=== PATIENT | female | born 1940 | race Caucasian/White ===

== ENCOUNTER 2016-11-26 07:52 | Day surgery (SDC) | payer MEDICARE ==
[2016-11-26] MEDS ORDERED: Lactated Ringers 1,000 ML IV SCH (08:45)
[2016-11-26] MEDS ORDERED: Lidocaine 2% 100 MG/5 ML Syringe IVPUSH ONE (09:50)
[2016-11-26] MEDS ORDERED: Propofol 200 MG/20 ML SDV IV ONE (09:50)
--- NOTE | 2016-11-26 10:05 | PCM.OPNOTE ---
- General Post-Op/Procedure Note Date of Surgery/Procedure: 11/26/16 Operative Procedure(s): egd Findings: healed antral ulcer duodenum diverticulum Pre Op Diagnosis: hx of antral ulcer Post-Op Diagnosis: healed antral ulcer duodenum diverticulum Anesthesia Technique: MAC Primary Surgeon: Kevan Dias Anesthesia Provider: Tyler Gaona Pathology: none Complications: None Condition: Good Free Text/Narrative:: see dictation
--- NOTE | 2016-11-26 10:42 | OR ---
DATE OF OPERATION: 11/26/2016 SURGEON: Kevan Dias MD PROCEDURE PERFORMED: Esophagogastroduodenoscopy. PREOPERATIVE DIAGNOSIS: Antral ulcer. POSTOPERATIVE DIAGNOSES: Healed antral ulcer as well as history of duodenal diverticulum. INDICATIONS FOR PROCEDURE: This is a 76-year-old white female, who was recently diagnosed with an antral ulcer. She has undergone treatment, feels much better. She now has an EGD. DESCRIPTION OF OPERATION: After an excellent IV sedation was administered, the bite block was inserted. The flexible endoscope was passed without difficulty down the patient's esophagus into the stomach. The stomach was insufflated. The scope was passed through the pylorus to the second portion of the duodenum and slowly withdrawn. Following findings were noted. The previously noted duodenal diverticulum was identified. Otherwise unremarkable. The stomach with no evidence of any residual ulcer noted. Esophagus essentially unremarkable. The stomach was deflated, scope was removed. The patient was taken to recovery room in good condition. /[id number] /MODL
[2016-11-26 13:34] VITALS: BP 112/60
== END 2016-11-26 11:08 | disposition home or self-care (01) ==
LOC: FB.SDS 07:52
PROVIDERS: ATTEND Surgery
DX: K25.9 Gastric ulcer, unspecified as acute or chronic, without hemorrhage or perforation (principal); I10 Essential (primary) hypertension; E78.5 Hyperlipidemia, unspecified; F32.9 Major depressive disorder, single episode, unspecified; K21.9 Gastro-esophageal reflux disease without esophagitis; Z88.0 Allergy status to penicillin; Z88.8 Allergy status to other drugs, medicaments and biological substances; Z79.899 Other long term (current) drug therapy; N17.9 Acute kidney failure, unspecified; Z90.49 Acquired absence of other specified parts of digestive tract; Z90.710 Acquired absence of both cervix and uterus; Z96.643 Presence of artificial hip joint, bilateral; Z96.651 Presence of right artificial knee joint; Z96.612 Presence of left artificial shoulder joint; Z96.611 Presence of right artificial shoulder joint; Z87.891 Personal history of nicotine dependence
CPT/HCPCS: 00740; 43235; J2704; J7120

== ENCOUNTER 2019-11-19 23:38 | Inpatient (IN) | payer MEDICARE ==
--- NOTE | 2019-11-20 00:16 | EDM.PDOC ---
ED HPI GENERAL MEDICAL PROBLEM - General Time Seen by Provider: 11/19/19 23:50 Source of Information: Reports: Patient History Limitations: Reports: Altered Mental Status - History of Present Illness INITIAL COMMENTS - FREE TEXT/NARRATIVE: c/o inc'd confusion all day reports that she "has not been right" all day, has had trouble completing her thoughts, tonight she had trouble speaking and it seemed a little worse tonight pt tried to take her evening meds twice, which is unusual pt needed help getting into her pajamas, which is unusual no n/v, no f/c/d, has not been ill otherwise dtr reports that pt and have had a cough - Related Data Allergies Allergy/AdvReac Type Severity Reaction Status Date / Time Penicillins Allergy Hives Verified 11/20/19 00:35 aspirin AdvReac Mild GI SX Verified 11/20/19 00:35 ibuprofen [From Motrin IB] AdvReac Mild GI SX Verified 11/20/19 00:35 morphine AdvReac Mild Hallucinati Verified 11/20/19 00:35 ons naproxen [From Aleve] AdvReac Mild GI SX Verified 11/20/19 00:35 Home Meds: Home Meds Ascorbate Calcium [Vitamin C] 500 mg PO DAILY PRN 08/21/16 [History] Calcium Carbonate/Vitamin D3 [Calcium 600 + Vit D 400 Softgl] 400 - 600 mg PO BID 08/21/16 [History] Cholecalciferol (Vitamin D3) [Vitamin D3] 1,000 units PO DAILY 08/21/16 [History ] Citalopram Hydrobromide [Celexa] 40 mg PO ACBREAKFAST 08/21/16 [History] Lisinopril/Hydrochlorothiazide [Zestoretic 10-12.5 mg Tablet] 10 - 12.5 mg PO DAILY 08/21/16 [History] Multivitamin with Minerals [Multiple Vitamin] 1 tab PO BID 08/21/16 [History] Tiotropium [Spiriva HandiHaler] 1 puff PO DAILY 08/21/16 [History] Vitamin E 400 unit PO BID 08/21/16 [History] rOPINIRole HCl [Requip] 0.5 mg PO BEDTIME 08/21/16 [History] traZODone 50 - 100 mg PO BEDTIME PRN 08/21/16 [History] Pantoprazole Sodium [Protonix] 40 mg PO DAILY 11/25/16 [History] Acetaminophen [Tylenol Arthritis] 650 mg PO ASDIRECTED PRN 11/26/16 [History] atorvaSTATin [Lipitor] 10 mg PO BEDTIME 11/20/19 [History] Past Medical History Cardiovascular History: Reports: High Cholesterol, Hypertension Other Cardiovascular History: RECENT EKG FOR PAIN INTO SHOULDERS, NECK, AND DOWN LT ARM Respiratory History: Reports: TB Gastrointestinal History: Reports: GERD Other Gastrointestinal History: pylorus ulcer ,diverticulosis of duodenum Genitourinary History: Reports: Acute Renal Failure, UTI, Recurrent Other Genitourinary History: acute cystitis 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: Musculoskeletal History: Reports: RA, Other (See Below) Other Musculoskeletal History: HX POLIO Neurological History: Reports: Other (See Below) Other Neuro History: EXTRAPYRAMIDAL MOVEMENT DISORDER,insomnia Psychiatric History: Reports: Depression Other Endocrine/Metabolic History: abnormal glucose,hyperlipidemia - Infectious Disease History Infectious Disease History: Reports: Chicken Pox, Measles - Past Surgical History Female Surgical History: Reports: Breast Biopsy, Hysterectomy Musculoskeletal Surgical History: Reports: Hip Replacement, Knee Replacement, Shoulder Replacement Social & Family History - Caffeine Use Caffeine Use: Reports: None ED ROS GENERAL - Review of Systems Review Of Systems: See Below Constitutional: Reports: No Symptoms HEENT: Reports: No Symptoms Respiratory: Reports: No Symptoms Cardiovascular: Reports: No Symptoms Endocrine: Reports: No Symptoms GI/Abdominal: Reports: No Symptoms : Reports: No Symptoms Musculoskeletal: Reports: No Symptoms Skin: Reports: No Symptoms Neurological: Reports: Confusion Psychiatric: Reports: No Symptoms Hematologic/Lymphatic: Reports: No Symptoms Immunologic: Reports: No Symptoms ED EXAM, GENERAL - Physical Exam Exam: See Below Exam Limited By: Altered Mental Status General Appearance: Alert Eye Exam: Bilateral Eye: Other (conjugate gaze, makes eye contact) Ears: Normal External Exam, Normal Canal, Hearing Grossly Normal Nose: Normal Inspection, Normal Mucosa, No Blood Throat/Mouth: Normal Inspection, Normal Lips, Normal Voice, No Airway Compromise Head: Atraumatic, Normocephalic Neck: Normal Inspection, Supple, Non-Tender, Full Range of Motion. No: Lymphadenopathy (R), Lymphadenopathy (L) Respiratory/Chest: No Respiratory Distress, Lungs Clear, Normal Breath Sounds, Chest Non-Tender, Other (no cough observed) Cardiovascular: Regular Rate, Rhythm, No Edema, No Gallop, Other (2/6 YUE at LSB , quiet precordium) GI/Abdominal: Soft, Non-Tender, No Distention Back Exam: Normal Inspection, Full Range of Motion. No: CVA Tenderness (R), CVA Tenderness (L) Extremities: Normal Range of Motion, Non-Tender, No Pedal Edema Neurological: Alert, CN II-XII Intact, No Motor/Sensory Deficits, Other (pt has difficulty completing thoughts, speaks slowly, mind seems to wander, did not answer when asked the name of the president, knew the month and year after thinking about it for awhile, knows the town, seems distracted) Skin Exam: Warm, Dry, Intact, Normal Color, No Rash Lymphatic: No Adenopathy Course - Vital Signs Last Recorded V/S: Last Vital Signs Temp 36.1 C 11/19/19 23:38 Pulse 86 11/19/19 23:38 Resp 20 11/19/19 23:38 BP 191/100 H 11/19/19 23:38 Pulse Ox 96 11/19/19 23:38 - Orders/Labs/Meds Orders: Active Orders 24 hr Category Date Time Status EKG Documentation Completion [RC] ASDIRECTED Care 11/19/19 23:58 Active Abdomen Pelvis wo Cont [CT] Stat Exams 11/20/19 01:03 Ordered Chest 1V Frontal [CR] Stat Exams 11/19/19 23:56 Ordered Head wo Cont [CT] Stat Exams 11/19/19 23:55 Ordered CULTURE BLOOD [BC] Urgent Lab 11/20/19 00:12 Ordered CULTURE BLOOD [BC] Urgent Lab 11/20/19 00:12 Ordered FOLATE (FOLIC ACID), SERUM Routine Lab 11/20/19 01:02 Ordered INFLUENZA A+B AG SCREEN [RM] Stat Lab 11/20/19 00:27 Ordered URINALYSIS W/MICROSCOPIC [UA W/MICROSCOPIC] [URIN] Stat Lab 11/20/19 01:50 Ordered Sodium Chloride 0.9% [Normal Saline] 1,000 ml Med 11/20/19 00:30 Ordered IV ASDIRECTED Blood Culture x2 Reflex Set [OM.PC] Urgent Oth 11/20/19 00:12 Ordered Isolation [COMM] Routine Oth 11/20/19 00:27 Ordered EKG 12 Lead [EK] Routine Ther 11/19/19 23:58 Ordered Medication Orders Sodium Chloride (Normal Saline) 1,000 mls @ 999 mls/hr IV ASDIRECTED DARIO Last Admin: 11/20/19 00:33 Dose: 999 mls/hr Labs: Laboratory Tests 11/19/19 11/19/19 11/19/19 Range/Units 23:48 23:48 23:48 WBC 11.8 (4.5-12.0) X10-3/uL RBC 3.39 (3.23-5.20) x10(6)uL Hgb 11.4 L (11.5-15.5) g/dL Hct 33.7 (30.0-51.3) % MCV 99.3 H (80-96) fL MCH 33.5 (27.7-33.6) pg MCHC 33.8 (32.2-35.4) g/dL RDW 12.6 (11.5-15.5) % Plt Count 187 (125-369) X10(3)uL MPV 8.0 (7.4-10.4) fL Add Manual Diff Yes Neutrophils % (Manual) 78 (46-82) % Band Neutrophils % 2 (0-6) % Lymphocytes % (Manual) 14 (13-37) % Monocytes % (Manual) 4 (4-12) % Eosinophils % (Manual) 2 (0-5) % PT (9.0-11.1) sec INR (1.00-1.24) Sodium 142 (135-145) mmol/L Potassium 4.6 (3.5-5.3) mmol/L Chloride 106 (100-110) mmol/L Carbon Dioxide 30 (21-32) mmol/L BUN 56 H (7-18) mg/dL Creatinine 3.1 H* (0.55-1.02) mg/dL Est Cr Clr Drug Dosing TNP Estimated GFR (MDRD) 15 L (>60) BUN/Creatinine Ratio 18.1 (9-20) Glucose 130 H (80-116) mg/dL POC Glucose (80-116) mg/dL Lactic Acid (0.4-2.0) mmol/L Calcium 12.5 H (8.6-10.2) mg/dL Total Bilirubin 0.9 (0.1-1.3) mg/dL AST 33 H (5-25) IU/L ALT 18 (12-36) U/L Alkaline Phosphatase 75 (56-112) IU/L Troponin I 48.7 (4.0-60.3) pg/mL C-Reactive Protein 1.4 H (0.5-0.9) mg/dL Total Protein 6.4 (6.0-8.0) g/dL Albumin 3.3 (3.2-4.6) g/dL Globulin 3.1 g/dL Albumin/Globulin Ratio 1.1 Vitamin B12 (193-986) pg/mL 11/19/19 11/19/19 11/20/19 Range/Units 23:48 23:49 00:01 WBC (4.5-12.0) X10-3/uL RBC (3.23-5.20) x10(6)uL Hgb (11.5-15.5) g/dL Hct (30.0-51.3) % MCV (80-96) fL MCH (27.7-33.6) pg MCHC (32.2-35.4) g/dL RDW (11.5-15.5) % Plt Count (125-369) X10(3)uL MPV (7.4-10.4) fL Add Manual Diff Neutrophils % (Manual) (46-82) % Band Neutrophils % (0-6) % Lymphocytes % (Manual) (13-37) % Monocytes % (Manual) (4-12) % Eosinophils % (Manual) (0-5) % PT 10.3 (9.0-11.1) sec INR 1.06 (1.00-1.24) Sodium (135-145) mmol/L Potassium (3.5-5.3) mmol/L Chloride (100-110) mmol/L Carbon Dioxide (21-32) mmol/L BUN (7-18) mg/dL Creatinine (0.55-1.02) mg/dL Est Cr Clr Drug Dosing Estimated GFR (MDRD) (>60) BUN/Creatinine Ratio (9-20) Glucose (80-116) mg/dL POC Glucose 117 H (80-116) mg/dL Lactic Acid 0.8 (0.4-2.0) mmol/L Calcium (8.6-10.2) mg/dL Total Bilirubin (0.1-1.3) mg/dL AST (5-25) IU/L ALT (12-36) U/L Alkaline Phosphatase (56-112) IU/L Troponin I (4.0-60.3) pg/mL C-Reactive Protein (0.5-0.9) mg/dL Total Protein (6.0-8.0) g/dL Albumin (3.2-4.6) g/dL Globulin g/dL Albumin/Globulin Ratio Vitamin B12 (193-986) pg/mL 11/20/19 Range/Units 00:01 WBC (4.5-12.0) X10-3/uL RBC (3.23-5.20) x10(6)uL Hgb (11.5-15.5) g/dL Hct (30.0-51.3) % MCV (80-96) fL MCH (27.7-33.6) pg MCHC (32.2-35.4) g/dL RDW (11.5-15.5) % Plt Count (125-369) X10(3)uL MPV (7.4-10.4) fL Add Manual Diff Neutrophils % (Manual) (46-82) % Band Neutrophils % (0-6) % Lymphocytes % (Manual) (13-37) % Monocytes % (Manual) (4-12) % Eosinophils % (Manual) (0-5) % PT (9.0-11.1) sec INR (1.00-1.24) Sodium (135-145) mmol/L Potassium (3.5-5.3) mmol/L Chloride (100-110) mmol/L Carbon Dioxide (21-32) mmol/L BUN (7-18) mg/dL Creatinine (0.55-1.02) mg/dL Est Cr Clr Drug Dosing Estimated GFR (MDRD) (>60) BUN/Creatinine Ratio (9-20) Glucose (80-116) mg/dL POC Glucose (80-116) mg/dL Lactic Acid (0.4-2.0) mmol/L Calcium (8.6-10.2) mg/dL Total Bilirubin (0.1-1.3) mg/dL AST (5-25) IU/L ALT (12-36) U/L Alkaline Phosphatase (56-112) IU/L Troponin I (4.0-60.3) pg/mL C-Reactive Protein (0.5-0.9) mg/dL Total Protein (6.0-8.0) g/dL Albumin (3.2-4.6) g/dL Globulin g/dL Albumin/Globulin Ratio Vitamin B12 698 (193-986) pg/mL Meds: Medications Generic Name Dose Route Start Last Admin Trade Name Freq PRN Reason Stop Dose Admin Sodium Chloride 1,000 mls @ 999 mls/hr 11/20/19 00:30 11/20/19 00:33 Normal Saline IV 999 mls/hr ASDIRECTED DARIO Administration - Re-Assessments/Exams Free Text/Narrative Re-Assessment/Exam: 11/20/19 02:16 pt appears severely dehydrated, possibly from taking too many lisinopril/hctz 10 /12.5 confusion may be from uremia baseline renal function is unknown hypercalcemia is most likely from uremia mild inc'd CRP 1.4 and borderline high WBC 11.8 is from unknown cause, no evidence infection on CxR radiology reading of CT of abd/pelvis without contrast pending at time of admission Departure - Departure Time of Disposition: 02:22 Disposition: DC/Tfer to Acute Hospital 02 Clinical Impression: Change in mental status, Lethargy, Renal insufficiency, Severe dehydration, Elevated C-reactive protein (CRP), Hypercalcemia, Macrocytic anemia, Elevated blood pressure reading - Discharge Information *PRESCRIPTION DRUG MONITORING PROGRAM REVIEWED*: Not Applicable *COPY OF PRESCRIPTION DRUG MONITORING REPORT IN PATIENT GIOVANNI: Not Applicable Referrals: Nir Polanco MD [Primary Care Provider] - Sepsis Event Note - Focused Exam Vital Signs: Vital Signs Temp Pulse Resp BP Pulse Ox 11/19/19 23:38 36.1 C 86 20 191/100 H 96 Date Exam was Performed: 11/20/19 Time Exam was Performed: 02:01 - My Orders Last 24 Hours: My Active Orders 11/19/19 23:55 Head wo Cont [CT] Stat 11/19/19 23:56 Chest 1V Frontal [CR] Stat 11/19/19 23:58 EKG Documentation Completion [RC] ASDIRECTED EKG 12 Lead [EK] Routine 11/20/19 00:12 CULTURE BLOOD [BC] Urgent CULTURE BLOOD [BC] Urgent Blood Culture x2 Reflex Set [OM.PC] Urgent 11/20/19 00:27 INFLUENZA A+B AG SCREEN [RM] Stat Isolation [COMM] Routine 11/20/19 00:30 Sodium Chloride 0.9% [Normal Saline] 1,000 ml IV ASDIRECTED 11/20/19 01:02 FOLATE (FOLIC ACID), SERUM Routine 11/20/19 01:03 Abdomen Pelvis wo Cont [CT] Stat 11/20/19 01:50 URINALYSIS W/MICROSCOPIC [UA W/MICROSCOPIC] [URIN] Stat - Assessment/Plan Last 24 Hours: My Active Orders 11/19/19 23:55 Head wo Cont [CT] Stat 11/19/19 23:56 Chest 1V Frontal [CR] Stat 11/19/19 23:58 EKG Documentation Completion [RC] ASDIRECTED EKG 12 Lead [EK] Routine 11/20/19 00:12 CULTURE BLOOD [BC] Urgent CULTURE BLOOD [BC] Urgent Blood Culture x2 Reflex Set [OM.PC] Urgent 11/20/19 00:27 INFLUENZA A+B AG SCREEN [RM] Stat Isolation [COMM] Routine 11/20/19 00:30 Sodium Chloride 0.9% [Normal Saline] 1,000 ml IV ASDIRECTED 11/20/19 01:02 FOLATE (FOLIC ACID), SERUM Routine 11/20/19 01:03 Abdomen Pelvis wo Cont [CT] Stat 11/20/19 01:50 URINALYSIS W/MICROSCOPIC [UA W/MICROSCOPIC] [URIN] Stat
[2019-11-20] MEDS ORDERED: Sodium Chloride 0.9% 1,000 ML IV SCH (00:30)
[2019-11-20] MEDS ORDERED: Magnesium Hydroxide 400 MG/5 ML Susp 30 ML Cup PO PRN (02:24)
[2019-11-20] MEDS ORDERED: Ondansetron 4 MG/2 ML SDV IV PRN (02:24)
[2019-11-20] MEDS ORDERED: Ascorbic Acid 500 MG Tab PO PRN (02:29)
[2019-11-20] MEDS: Enoxaparin 30 MG/0.3 ML Syringe SUBCUT SCH (03:32)
[2019-11-20] MEDS: Citalopram 20 MG Tab PO SCH (06:49)
[2019-11-20] MEDS: Pantoprazole 40 MG Tab.CR PO SCH (06:49)
[2019-11-20] MEDS: Dextrose 5%-0.45% NaCl 1,000 ML IV SCH ×2 (06:52→19:31)
[2019-11-20] MEDS: Vitamin E (dl-alpha-tocopherol acetate) 400 Unit Cap PO SCH ×2 (09:16→20:21)
[2019-11-20] MEDS: Tiotropium Inhaler 18 MCG Inhalation Powder Cap Kit of 5 INH SCH (09:16)
--- NOTE | 2019-11-20 11:30 | PCM.HP.2 ---
H&P History of Present Illness - General Date of Service: 11/20/19 Admit Problem/Dx: Admission Diagnosis/Problem Admission Diagnosis/Problem Confusion Source of Information: Patient, Old Records, Provider - History of Present Illness Initial Comments - Free Text/Narative: ER provider: c/o inc'd confusion all day. Her reports that she "has not been right" all day, has had trouble completing her thoughts, tonight she had trouble speaking and it seemed a little worse tonight. pt tried to take her evening meds twice, which is unusual. pt needed help getting into her pajamas, which is unusual. no n/v, no f/c/d, has not been ill otherwise. dtr reports that pt and have had a cough. This morning Deidra is confused, does not finish her sentences. Can't remember how long her symptoms have been going on. Thinks thursday. Knows she is in the hospital but initially thought in [place] but knew that was not right but couldn't remember the name. Denies any fevers, chills, nasal congestion, shortness of breath, chest pain but sore throat & cough. CT head showed sinuses were clear. No acute changes but old lacunar infarcts and small vessel ischemic changes. CXR clear. Influenza negative. Abdominal pain, lower areas, states she' s had diarrhea but no nausea or vomiting. Can't tell me about urination. No pain elsewhere. No edema. PCP is Dr Polanco. CT abdomen showed extensive colonic diverticulosis without diverticulitis. No hydronephrosis but slight nonspecific fat stranding at level of kidneys. Trace free fluid. S/p hysterectomy. Kidney cyst. Slight elevation of WBC, Renal insufficiency, no previous creatinine in [facility] to compare to; Hypercalcemia, possibly secondary to uremia. CRP slight elevated at 1.4. - Related Data Allergies/Adverse Reactions: Allergies Allergy/AdvReac Type Severity Reaction Status Date / Time Penicillins Allergy Hives Verified 11/20/19 00:35 aspirin AdvReac Mild GI SX Verified 11/20/19 00:35 ibuprofen [From Motrin IB] AdvReac Mild GI SX Verified 11/20/19 00:35 morphine AdvReac Mild Hallucinati Verified 11/20/19 00:35 ons naproxen [From Aleve] AdvReac Mild GI SX Verified 11/20/19 00:35 Home Medications: Home Meds Ascorbate Calcium [Vitamin C] 500 mg PO DAILY PRN 08/21/16 [History] Calcium Carbonate/Vitamin D3 [Calcium 600 + Vit D 400 Softgl] 400 - 600 mg PO BID 08/21/16 [History] Cholecalciferol (Vitamin D3) [Vitamin D3] 1,000 units PO DAILY 08/21/16 [History ] Citalopram Hydrobromide [Celexa] 40 mg PO ACBREAKFAST 08/21/16 [History] Lisinopril/Hydrochlorothiazide [Zestoretic 10-12.5 mg Tablet] 10 - 12.5 mg PO DAILY 08/21/16 [History] Multivitamin with Minerals [Multiple Vitamin] 1 tab PO BID 08/21/16 [History] Tiotropium [Spiriva HandiHaler] 1 puff PO DAILY 08/21/16 [History] Vitamin E 400 unit PO BID 08/21/16 [History] rOPINIRole HCl [Requip] 0.5 mg PO BEDTIME 08/21/16 [History] traZODone 50 - 100 mg PO BEDTIME PRN 08/21/16 [History] Pantoprazole Sodium [Protonix] 40 mg PO DAILY 11/25/16 [History] Acetaminophen [Tylenol Arthritis] 650 mg PO ASDIRECTED PRN 11/26/16 [History] atorvaSTATin [Lipitor] 10 mg PO BEDTIME 11/20/19 [History] Past Medical History Cardiovascular History: Reports: High Cholesterol, Hypertension Other Cardiovascular History: RECENT EKG FOR PAIN INTO SHOULDERS, NECK, AND DOWN LT ARM Respiratory History: Reports: TB Gastrointestinal History: Reports: GERD Other Gastrointestinal History: pylorus ulcer ,diverticulosis of duodenum Genitourinary History: Reports: Acute Renal Failure, UTI, Recurrent Other Genitourinary History: acute cystitis [employer]ATING [employer] History: Reports: Other OB/BYN History: Musculoskeletal History: Reports: RA, Other (See Below) Other Musculoskeletal History: HX POLIO Neurological History: Reports: Other (See Below) Other Neuro History: EXTRAPYRAMIDAL MOVEMENT DISORDER,insomnia Psychiatric History: Reports: Depression Endocrine/Metabolic History: Reports: Obesity/BMI 30+ Other Endocrine/Metabolic History: abnormal glucose,hyperlipidemia - Infectious Disease History Infectious Disease History: Reports: Chicken Pox, Measles - Past Surgical History Female Surgical History: Reports: Breast Biopsy, Hysterectomy Musculoskeletal Surgical History: Reports: Hip Replacement, Knee Replacement, Shoulder Replacement Social & Family History - Family History Family Medical History: Noncontributory - Tobacco Use Smoking Status *Q: Never Smoker - Caffeine Use Caffeine Use: Reports: Soda, Tea - Recreational Drug Use Recreational Drug Use: No H&P Review of Systems - Review of Systems: Review Of Systems: Comprehensive ROS is negative, except as noted in HPI. Exam - Exam Exam: See Below - Vital Signs Vital Signs: Last Vital Signs Temp 97.8 F 11/20/19 08:00 Pulse 88 11/20/19 08:00 Resp 18 11/20/19 08:00 BP 143/85 H 11/20/19 09:18 Pulse Ox 95 11/20/19 08:00 Weight: 175 lb 8 oz - Exam General: Alert, Oriented (person, confused), Cooperative HEENT: PERRLA, Conjunctiva Clear, EOMI, Hearing Intact, Nares Patent, Normal Nasal Septum, Posterior Pharynx Clear, TMs Clear (right, partial obstruction with cerumen), Other (Mucosa dry, tacky.) Neck: Supple, Trachea Midline Lungs: Clear to Auscultation, Normal Respiratory Effort Cardiovascular: Regular Rate, Regular Rhythm, Normal S1, Normal S2, Systolic Murmur (2/6) GI/Abdominal Exam: Normal Bowel Sounds, Soft, No Distention, Tender (BLQ). No: Guarding, Rigid, Rebound (Female) Exam: Deferred Rectal (Female) Exam: Deferred Extremities: No Pedal Edema Peripheral Pulses: 2+: Radial (L), Radial (R), Posterior Tibial (L), Posterior Tibial (R), Dorsalis Pedis (L), Dorsalis Pedis (R) Skin: Warm, Dry, Intact Neuro Extensive - Mental Status: Alert, Disorientation to Place, Disorientation to Time, Memory Loss-Recent Events, Slow Response to Commands (understands questions, but slow to response with answers.) Neuro Extensive - Motor, Sensory, Reflexes: CN II-XII Intact, Expressive Aphasia (cannot complete sentence, speaks a few words then stops. ). No: Motor/ Sensory Deficits - Patient Data Lab Results Last 24 hrs: Laboratory Results - last 24 hr 03/14/20 03/14/20 03/14/20 Range/Units 23:48 23:48 23:48 WBC 11.8 (4.5-12.0) X10-3/uL RBC 3.39 (3.23-5.20) x10(6)uL Hgb 11.4 L (11.5-15.5) g/dL Hct 33.7 (30.0-51.3) % MCV 99.3 H (80-96) fL MCH 33.5 (27.7-33.6) pg MCHC 33.8 (32.2-35.4) g/dL RDW 12.6 (11.5-15.5) % Plt Count 187 (125-369) X10(3)uL MPV 8.0 (7.4-10.4) fL Add Manual Diff Yes Neutrophils % (Manual) 78 (46-82) % Band Neutrophils % 2 (0-6) % Lymphocytes % (Manual) 14 (13-37) % Monocytes % (Manual) 4 (4-12) % Eosinophils % (Manual) 2 (0-5) % PT (9.0-11.1) sec INR (1.00-1.24) Sodium 142 (135-145) mmol/L Potassium 4.6 (3.5-5.3) mmol/L Chloride 106 (100-110) mmol/L Carbon Dioxide 30 (21-32) mmol/L BUN 56 H (7-18) mg/dL Creatinine 3.1 H* (0.55-1.02) mg/dL Est Cr Clr Drug Dosing TNP Estimated GFR (MDRD) 15 L (>60) BUN/Creatinine Ratio 18.1 (9-20) Glucose 130 H (80-116) mg/dL POC Glucose (80-116) mg/dL Lactic Acid (0.4-2.0) mmol/L Calcium 12.5 H (8.6-10.2) mg/dL Total Bilirubin 0.9 (0.1-1.3) mg/dL AST 33 H (5-25) IU/L ALT 18 (12-36) U/L Alkaline Phosphatase 75 (56-112) IU/L Troponin I 48.7 (4.0-60.3) pg/mL C-Reactive Protein 1.4 H (0.5-0.9) mg/dL Total Protein 6.4 (6.0-8.0) g/dL Albumin 3.3 (3.2-4.6) g/dL Globulin 3.1 g/dL Albumin/Globulin Ratio 1.1 Vitamin B12 (193-986) pg/mL Urine Color (YELLOW) Urine Appearance (CLEAR) Urine pH (5.0-6.5) Ur Specific [place] (1.010-1.025) Urine Protein (NEGATIVE) mg/dL Urine Glucose (UA) (NORMAL) mg/dL Urine Ketones (NEGATIVE) mg/dL Urine Occult Blood (NEGATIVE) Urine Nitrite (NEGATIVE) Urine Bilirubin (NEGATIVE) Urine Urobilinogen (NEGATIVE) mg/dL Ur Leukocyte Esterase (NEGATIVE) Urine RBC (0-5) Urine WBC (0-5) Ur Squamous Epith Cells (NS,R,O) Amorphous Sediment Urine Bacteria (NS) Coarse Granular Casts (NS) 11/19/19 11/19/19 11/20/19 Range/Units 23:48 23:49 00:01 WBC (4.5-12.0) X10-3/uL RBC (3.23-5.20) x10(6)uL Hgb (11.5-15.5) g/dL Hct (30.0-51.3) % MCV (80-96) fL MCH (27.7-33.6) pg MCHC (32.2-35.4) g/dL RDW (11.5-15.5) % Plt Count (125-369) X10(3)uL MPV (7.4-10.4) fL Add Manual Diff Neutrophils % (Manual) (46-82) % Band Neutrophils % (0-6) % Lymphocytes % (Manual) (13-37) % Monocytes % (Manual) (4-12) % Eosinophils % (Manual) (0-5) % PT 10.3 (9.0-11.1) sec INR 1.06 (1.00-1.24) Sodium (135-145) mmol/L Potassium (3.5-5.3) mmol/L Chloride (100-110) mmol/L Carbon Dioxide (21-32) mmol/L BUN (7-18) mg/dL Creatinine (0.55-1.02) mg/dL Est Cr Clr Drug Dosing Estimated GFR (MDRD) (>60) BUN/Creatinine Ratio (9-20) Glucose (80-116) mg/dL POC Glucose 117 H (80-116) mg/dL Lactic Acid 0.8 (0.4-2.0) mmol/L Calcium (8.6-10.2) mg/dL Total Bilirubin (0.1-1.3) mg/dL AST (5-25) IU/L ALT (12-36) U/L Alkaline Phosphatase (56-112) IU/L Troponin I (4.0-60.3) pg/mL C-Reactive Protein (0.5-0.9) mg/dL Total Protein (6.0-8.0) g/dL Albumin (3.2-4.6) g/dL Globulin g/dL Albumin/Globulin Ratio Vitamin B12 (193-986) pg/mL Urine Color (YELLOW) Urine Appearance (CLEAR) Urine pH (5.0-6.5) Ur Specific [place] (1.010-1.025) Urine Protein (NEGATIVE) mg/dL Urine Glucose (UA) (NORMAL) mg/dL Urine Ketones (NEGATIVE) mg/dL Urine Occult Blood (NEGATIVE) Urine Nitrite (NEGATIVE) Urine Bilirubin (NEGATIVE) Urine Urobilinogen (NEGATIVE) mg/dL Ur Leukocyte Esterase (NEGATIVE) Urine RBC (0-5) Urine WBC (0-5) Ur Squamous Epith Cells (NS,R,O) Amorphous Sediment Urine Bacteria (NS) Coarse Granular Casts (NS) 11/20/19 11/20/19 Range/Units 00:01 00:15 WBC (4.5-12.0) X10-3/uL RBC (3.23-5.20) x10(6)uL Hgb (11.5-15.5) g/dL Hct (30.0-51.3) % MCV (80-96) fL MCH (27.7-33.6) pg MCHC (32.2-35.4) g/dL RDW (11.5-15.5) % Plt Count (125-369) X10(3)uL MPV (7.4-10.4) fL Add Manual Diff Neutrophils % (Manual) (46-82) % Band Neutrophils % (0-6) % Lymphocytes % (Manual) (13-37) % Monocytes % (Manual) (4-12) % Eosinophils % (Manual) (0-5) % PT (9.0-11.1) sec INR (1.00-1.24) Sodium (135-145) mmol/L Potassium (3.5-5.3) mmol/L Chloride (100-110) mmol/L Carbon Dioxide (21-32) mmol/L BUN (7-18) mg/dL Creatinine (0.55-1.02) mg/dL Est Cr Clr Drug Dosing Estimated GFR (MDRD) (>60) BUN/Creatinine Ratio (9-20) Glucose (80-116) mg/dL POC Glucose (80-116) mg/dL Lactic Acid (0.4-2.0) mmol/L Calcium (8.6-10.2) mg/dL Total Bilirubin (0.1-1.3) mg/dL AST (5-25) IU/L ALT (12-36) U/L Alkaline Phosphatase (56-112) IU/L Troponin I (4.0-60.3) pg/mL C-Reactive Protein (0.5-0.9) mg/dL Total Protein (6.0-8.0) g/dL Albumin (3.2-4.6) g/dL Globulin g/dL Albumin/Globulin Ratio Vitamin B12 698 (193-986) pg/mL Urine Color Yellow (YELLOW) Urine Appearance Slightly cloudy (CLEAR) Urine pH 5.0 (5.0-6.5) Ur Specific [place] 1.025 (1.010-1.025) Urine Protein 500 H (NEGATIVE) mg/dL Urine Glucose (UA) Normal (NORMAL) mg/dL Urine Ketones Negative (NEGATIVE) mg/dL Urine Occult Blood Moderate H (NEGATIVE) Urine Nitrite Negative (NEGATIVE) Urine Bilirubin Negative (NEGATIVE) Urine Urobilinogen Normal (NEGATIVE) mg/dL Ur Leukocyte Esterase Negative (NEGATIVE) Urine RBC 5-10 H (0-5) Urine WBC 0-5 (0-5) Ur Squamous Epith Cells Occasional (NS,R,O) Amorphous Sediment Few Urine Bacteria Few H (NS) Coarse Granular Casts Rare H (NS) Result Diagrams: 11/19/19 23:48 11/19/19 23:48 Valentín Results Last 24 hrs: Microbiology 11/19/19 23:58 Influenza Type A Antigen Screen - Final Nasal, Unspecified NEGATIVE INFLUENZA A VIRUS AG REFERENCE RANGE: NEGATIVE Influenza Type B Antigen Screen - Final NEGATIVE INFLUENZA B VIRUS AG REFERENCE RANGE: NEGATIVE Imaging Impressions Last 24 hrs: CT head: old small vessel ischemic changes, old small lacunar infarcts. No acute changes. CXR: negative. CT abdomen/pelvis: extensive colonic diverticulosis without diverticulitis. No hydronephrosis but slight nonspecific fat stranding at level of kidneys. Trace free fluid. S/p hysterectomy. Kidney cyst. EKG INTERPRETATION EKG Date: 11/20/19 Time: 07:25 Rhythm: NSR Rate (Beats/Min): 80 [place]: LAD-Left [place] Deviation (-18) P-Wave: Present QRS: Normal ST-T: Normal QT: Normal Comparison: NA - No Prior EKG EKG Interpretation Comments: Normal sinus rhythm, slight Left axis deviation. No Q waves, ST-T changes. No ischemic or infarct changes noted. Normal EKG. Sepsis Event Note - Evaluation Sepsis Screening Result: No Definite Risk - Focused Exam Vital Signs: Vital Signs Temp Pulse Resp BP Pulse Ox 11/20/19 09:18 143/85 H 11/20/19 08:00 97.8 F 88 18 175/105 H 95 11/20/19 02:30 97.4 F 81 18 179/90 H 96 11/20/19 02:24 97.4 F 84 18 178/93 H 97 11/20/19 02:00 78 20 168/98 H 95 11/20/19 01:32 77 18 183/98 H 95 11/20/19 01:00 79 20 188/90 H 98 11/20/19 00:30 79 20 180/82 H 98 11/20/19 00:00 82 20 189/89 H 97 11/19/19 23:38 96.9 F 86 20 191/100 H 96 Date Exam was Performed: 11/20/19 Time Exam was Performed: 11:20 - Problem List (1) Severe dehydration SNOMED Code(s): 214740139 ICD Code: E86.0 - DEHYDRATION Status: Acute Current Visit: Yes (2) Change in mental status SNOMED Code(s): 178359740 ICD Code: R41.82 - ALTERED MENTAL STATUS, UNSPECIFIED Status: Acute Current Visit: Yes (3) Renal insufficiency SNOMED Code(s): 673989599, 788991359 ICD Code: N28.9 - DISORDER OF KIDNEY AND URETER, UNSPECIFIED Status: Acute Current Visit: Yes (4) Hypercalcemia SNOMED Code(s): 60443955 ICD Code: E83.52 - HYPERCALCEMIA Status: Acute Current Visit: Yes (5) Lethargy SNOMED Code(s): 397105023 ICD Code: R53.83 - OTHER FATIGUE Status: Acute Current Visit: Yes (6) Elevated C-reactive protein (CRP) SNOMED Code(s): 654699178356304 ICD Code: R79.82 - ELEVATED C-REACTIVE PROTEIN (CRP) Status: Acute Current Visit: Yes (7) Macrocytic anemia SNOMED Code(s): 66911339 ICD Code: D53.9 - NUTRITIONAL ANEMIA, UNSPECIFIED Status: Acute Current Visit: Yes (8) Elevated blood pressure reading SNOMED Code(s): 10620414 ICD Code: R03.0 - ELEVATED BLOOD-PRESSURE READING, W/O DIAGNOSIS OF HTN Status: Resolved Current Visit: Yes Problem List Initiated/Reviewed/Updated: Yes Orders Last 24hrs: Active Orders 24 hr Category Date Time Status Admission Status [Patient Status] [ADT] Routine ADT 11/20/19 02:06 Active Antiembolic Devices [RC] .Routine Care 11/20/19 09:26 Active Height and Weight [RC] 06 Care 11/20/19 02:24 Active Intake and Output [RC] 06,14,22 Care 11/20/19 02:24 Active Oxygen Therapy [RC] PRN Care 11/20/19 02:24 Active Up With Assistance [RC] ASDIRECTED Care 11/20/19 02:24 Active Vital Signs [RC] 00,04,08,12,16,20 Care 11/20/19 02:24 Active 2 Gram Sodium Diet [DIET] Diet 11/20/19 Breakfast Active Abdomen Pelvis wo Cont [CT] Stat Exams 11/20/19 01:03 Taken Chest 1V Frontal [CR] Stat Exams 11/19/19 23:56 Taken Chest 2V [CR] Timed Exams 11/21/19 07:00 Ordered Head wo Cont [CT] Stat Exams 11/19/19 23:55 Taken BASIC METABOLIC PANEL,BMP [CHEM] DAILY Lab 11/21/19 05:30 Ordered BASIC METABOLIC PANEL,BMP [CHEM] DAILY Lab 11/22/19 05:30 Ordered BASIC METABOLIC PANEL,BMP [CHEM] DAILY Lab 11/23/19 05:30 Ordered BASIC METABOLIC PANEL,BMP [CHEM] DAILY Lab 11/24/19 05:30 Ordered BASIC METABOLIC PANEL,BMP [CHEM] DAILY Lab 11/25/19 05:30 Ordered BASIC METABOLIC PANEL,BMP [CHEM] DAILY Lab 11/26/19 05:30 Ordered CBC WITH AUTO DIFF [HEME] DAILY Lab 11/21/19 05:30 Ordered CULTURE BLOOD [BC] Urgent Lab 11/20/19 00:18 Received CULTURE BLOOD [BC] Urgent Lab 11/20/19 00:25 Received FOLATE (FOLIC ACID), SERUM Routine Lab 11/20/19 00:01 Received Acetaminophen [Tylenol] Med 11/20/19 02:24 Active 650 mg PO Q4H PRN Ascorbic Acid [Vitamin C] Med 11/20/19 02:29 Active 500 mg PO DAILY PRN Citalopram [Celexa] Med 11/20/19 07:30 Active 40 mg PO ACBREAKFAST Dextrose 5%-0.45% NaCl [Dextrose 5%-1/2 NS] 1,000 ml Med 11/20/19 02:30 Active IV ASDIRECTED Enoxaparin [Lovenox] Med 11/20/19 03:00 Active 30 mg SUBCUT Q24H Magnesium Hydroxide [Milk of Magnesia] Med 11/20/19 02:24 Active 30 ml PO Q12H PRN Ondansetron [Zofran] Med 11/20/19 02:24 Active 4 mg IV Q4H PRN Pantoprazole [ProTONIX] Med 11/20/19 07:30 Active 40 mg PO ACBREAKFAST Sodium Chloride 0.9% [Normal Saline] 1,000 ml Med 11/20/19 00:30 Active IV ASDIRECTED Tiotropium [Spiriva HandiHaler] Med 11/20/19 09:00 Active 0 mcg INH DAILY Vitamin E (dl, acetate) [Vitamin E] Med 11/20/19 09:00 Active 400 units PO BID atorvaSTATin [Lipitor] Med 11/20/19 21:00 Active 10 mg PO BEDTIME rOPINIRole [Requip] Med 11/20/19 21:00 Active 0.5 mg PO BEDTIME traZODone Med 11/20/19 02:29 Active 50 mg PO BEDTIME PRN Antiembolic Hose [OM.PC] Routine Oth 11/20/19 09:26 Ordered Blood Culture x2 Reflex Set [OM.PC] Urgent Oth 11/20/19 00:12 Ordered Isolation [COMM] Routine Oth 11/20/19 00:27 Ordered Resuscitation Status Routine Resus Stat 11/20/19 02:24 Ordered EKG 12 Lead [EK] Routine Ther 11/19/19 23:58 Ordered Medication Orders Acetaminophen (Tylenol) 650 mg PO Q4H PRN PRN Reason: Pain (Mild 1-3)/fever Ascorbic Acid (Vitamin C) 500 mg PO DAILY PRN PRN Reason: Other Atorvastatin Calcium (Lipitor) 10 mg PO BEDTIME [facility] Citalopram Hydrobromide (Celexa) 40 mg PO ACBREAKFAST [facility] Last Admin: 11/20/19 06:49 Dose: 40 mg Enoxaparin Sodium (Lovenox) 30 mg SUBCUT Q24H [facility] Last Admin: 11/20/19 03:32 Dose: 30 mg Sodium Chloride (Normal Saline) 1,000 mls @ 999 mls/hr IV ASDIRECTED [facility] Last Admin: 11/20/19 00:33 Dose: 999 mls/hr Dextrose/Sodium Chloride (Dextrose 5%-1/2 Ns) 1,000 mls @ 75 mls/hr IV ASDIRECTED [facility] Last Admin: 11/20/19 06:52 Dose: 75 mls/hr Magnesium Hydroxide (Milk Of Magnesia) 30 ml PO Q12H PRN PRN Reason: Constipation Ondansetron HCl (Zofran) 4 mg IV Q4H PRN PRN Reason: Nausea/Vomiting Pantoprazole Sodium (Protonix) 40 mg PO ACBREAKFAST [facility] Last Admin: 11/20/19 06:49 Dose: 40 mg Ropinirole HCl (Requip) 0.5 mg PO BEDTIME [facility] Tiotropium [place] (Spiriva Handihaler) 0 mcg INH DAILY [facility] Last Admin: 11/20/19 09:16 Dose: 1 puff Trazodone HCl (Trazodone) 50 mg PO BEDTIME PRN PRN Reason: Insomnia Vitamin E (Vitamin E) 400 units PO BID [facility] Last Admin: 11/20/19 09:16 Dose: 400 units Assessment/Plan Comment:: 1. Admit for further workup of acute altered mental status, renal insufficiency , hypercalcemia, severe dehydration. 2. D51/4NS at 75 ml/hr, gentle rehydration given her age. 3. Recheck labs tomorrow. 4. MRI head tomorrow, confusion & expressive aphasia. 5. Review patient's [place] chart for most recent lab work for comparison. 6. PTH for hypercalcemia. 7. Review home medications. 8. FULL CODE. 9. Adjust treatments as necessary. - Mortality Measure Prognosis:: Poor
[2019-11-20] MEDS: Lisinopril 10 MG Tab PO SCH (13:37)
[2019-11-20] MEDS: atorvaSTATin 10 MG Tab PO SCH (20:21)
[2019-11-20] MEDS: rOPINIRole 0.5 MG Tab PO SCH (21:08)
[2019-11-21] MEDS: Enoxaparin 30 MG/0.3 ML Syringe SUBCUT SCH (02:52)
[2019-11-21] MEDS: Pantoprazole 40 MG Tab.CR PO SCH (06:30)
[2019-11-21] MEDS: Citalopram 20 MG Tab PO SCH (06:30)
[2019-11-21] MEDS ORDERED: amLODIPine 5 MG Tab PO SCH (09:00)
[2019-11-21] MEDS: Dextrose 5%-0.45% NaCl 1,000 ML IV SCH (09:06)
[2019-11-21] MEDS: Lisinopril 10 MG Tab PO SCH (10:03)
[2019-11-21] MEDS: Vitamin E (dl-alpha-tocopherol acetate) 400 Unit Cap PO SCH ×2 (10:03→20:13)
[2019-11-21] MEDS: Tiotropium Inhaler 18 MCG Inhalation Powder Cap Kit of 5 INH SCH (10:04)
--- NOTE | 2019-11-21 10:49 | CR ---
INDICATION: Cough, weakness. CHEST, 2 VIEWS: AP and lateral views of the chest were obtained 11/21/19 at 09: 28 hours and compared with 11/19/19 at 23:57 hours and 04/27/09. The heart is enlarged. Mitral annular calcification is noted. The aorta is tortuous with calcification in the arch. Somewhat diminished bone density raises the question of osteoporosis and should be correlated clinically. Degenerative changes and disk disease are noted in the mid-thoracic spine. Heavy markings are noted at the lung bases and midlung rivera, which may represent patchy infiltration and possibly edema. No gross evidence of CHF is seen, however. No consolidating pneumonia or definite pleural effusion was seen. Bilateral shoulder arthroplasties are noted as previously. IMPRESSION: 1. No definite new process but difficult to exclude patchy bronchopneumonia at the lung bases, especially on the left. 2. ASHD with cardiomegaly, mitral annular calcification and tortuous calcified aorta. 3. Degenerative changes with disk disease mid-thoracic spine with a mild dextroconvex scoliosis. Possible demineralization suggesting osteoporosis - correlate clinically. MTDD
--- NOTE | 2019-11-21 11:18 | PCM.PN ---
- General Info Date of Service: 11/21/19 Subjective Update: Deidra is still very confused, starts a few words of a sentence then trails off. Looking at her food but making no attempt to feed herself. No facial droop, staff have had to do a lot of cueing to get her to bathroom and at meals. ROS not able to obtain due to her confusion. - Patient Data Vitals - Most Recent: Last Vital Signs Temp 97.9 F 11/21/19 04:00 Pulse 80 11/21/19 04:00 Resp 16 11/21/19 04:00 BP 165/93 H 11/21/19 10:03 Pulse Ox 95 11/21/19 04:00 Orthostatic Blood Pressure [ 173/92 Standing] Orthostatic Blood Pressure [ 169/108 Sitting] Weight - Most Recent: 179 lb 8 oz I&O - Last 24 Hours: Intake & Output 11/20/19 11/21/19 11/21/19 22:59 06:59 14:59 Intake Total 636 831 Output Total 50 200 Balance 586 631 Lab Results Last 24 Hours: Laboratory Results - last 24 hr 11/21/19 11/21/19 Range/Units 05:55 05:55 WBC 9.1 (4.5-12.0) X10-3/uL RBC 2.87 L (3.23-5.20) x10(6)uL Hgb 9.5 L (11.5-15.5) g/dL Hct 28.3 L (30.0-51.3) % MCV 98.6 H (80-96) fL MCH 33.0 (27.7-33.6) pg MCHC 33.5 (32.2-35.4) g/dL RDW 12.6 (11.5-15.5) % Plt Count 170 (125-369) X10(3)uL MPV 8.2 (7.4-10.4) fL Neut % (Auto) 77.9 (46-82) % Lymph % (Auto) 11.9 L (13-37) % Henderson % (Auto) 7.1 (4-12) % Eos % (Auto) 3 (1.0-5.0) % Baso % (Auto) 0 (0-2) % Neut # (Auto) 7.1 (1.6-8.3) # Lymph # (Auto) 1.1 (0.6-5.0) # Henderson # (Auto) 0.6 (0.0-1.3) # Eos # (Auto) 0.3 (0.0-0.8) # Baso # (Auto) 0.0 (0.0-0.2) # Sodium 141 (135-145) mmol/L Potassium 4.1 (3.5-5.3) mmol/L Chloride 107 (100-110) mmol/L Carbon Dioxide 27 (21-32) mmol/L BUN 57 H (7-18) mg/dL Creatinine 3.1 H* (0.55-1.02) mg/dL Est Cr Clr Drug Dosing 12.91 mL/min Estimated GFR (MDRD) 15 L (>60) BUN/Creatinine Ratio 18.4 (9-20) Glucose 113 (80-116) mg/dL Calcium 9.8 D (8.6-10.2) mg/dL Valentín Results Last 24 Hours: Microbiology 11/20/19 00:25 Aerobic Blood Culture - Preliminary Blood - Venous - Lab Draw NO GROWTH AFTER 1 DAY Anaerobic Blood Culture - Preliminary NO GROWTH AFTER 1 DAY 11/20/19 00:18 Aerobic Blood Culture - Preliminary Blood - Venous NO GROWTH AFTER 1 DAY Anaerobic Blood Culture - Preliminary NO GROWTH AFTER 1 DAY 11/19/19 23:58 Influenza Type A Antigen Screen - Final Nasal, Unspecified NEGATIVE INFLUENZA A VIRUS AG REFERENCE RANGE: NEGATIVE Influenza Type B Antigen Screen - Final NEGATIVE INFLUENZA B VIRUS AG REFERENCE RANGE: NEGATIVE Med Orders - Current: Current Medications Acetaminophen (Tylenol) 650 mg PO Q4H PRN PRN Reason: Pain (Mild 1-3)/fever Amlodipine Besylate (Norvasc) 5 mg PO DAILY [facility] Last Admin: 11/21/19 10:03 Dose: 5 mg Ascorbic Acid (Vitamin C) 500 mg PO DAILY PRN PRN Reason: Other Atorvastatin Calcium (Lipitor) 10 mg PO BEDTIME [facility] Last Admin: 11/20/19 20:21 Dose: 10 mg Citalopram Hydrobromide (Celexa) 40 mg PO ACBREAKFAST [facility] Last Admin: 11/21/19 06:30 Dose: 40 mg Enoxaparin Sodium (Lovenox) 30 mg SUBCUT Q24H [facility] Last Admin: 11/21/19 02:52 Dose: 30 mg Sodium Chloride (Normal Saline) 1,000 mls @ 999 mls/hr IV ASDIRECTED [facility] Last Admin: 11/20/19 00:33 Dose: 999 mls/hr Dextrose/Sodium Chloride (Dextrose 5%-1/2 Ns) 1,000 mls @ 75 mls/hr IV ASDIRECTED [facility] Last Admin: 11/21/19 09:06 Dose: 75 mls/hr Labetalol HCl (Normodyne) 20 mg IVPUSH ONETIME ONE; Protocol Stop: 11/21/19 10:48 Lisinopril (Prinivil) 10 mg PO DAILY [facility] Last Admin: 11/21/19 10:03 Dose: 10 mg Magnesium Hydroxide (Milk Of Magnesia) 30 ml PO Q12H PRN PRN Reason: Constipation Ondansetron HCl (Zofran) 4 mg IV Q4H PRN PRN Reason: Nausea/Vomiting Pantoprazole Sodium (Protonix) 40 mg PO ACBREAKFAST [facility] Last Admin: 11/21/19 06:30 Dose: 40 mg Ropinirole HCl (Requip) 0.5 mg PO BEDTIME [facility] Last Admin: 11/20/19 21:08 Dose: 0.5 mg Tiotropium [place] (Spiriva Handihaler) 0 mcg INH DAILY [facility] Last Admin: 11/21/19 10:04 Dose: 1 puff Trazodone HCl (Trazodone) 50 mg PO BEDTIME PRN PRN Reason: Insomnia Vitamin E (Vitamin E) 400 units PO BID [facility] Last Admin: 11/21/19 10:03 Dose: 400 units - Exam General: Alert, Cooperative, Other (Not oriented to place or time, very confused , can't finish her sentences.) Lungs: Clear to Auscultation, Normal Respiratory Effort Cardiovascular: Regular Rate, Regular Rhythm GI/Abdominal Exam: Normal Bowel Sounds, Soft, Non-Tender, No Distention Extremities: No Pedal Edema Peripheral Pulses: 2+: Radial (L), Radial (R) Neurological: No New Focal Deficit Sepsis Event Note - Evaluation Sepsis Screening Result: No Definite Risk - Focused Exam Vital Signs: Vital Signs Temp Pulse Resp BP BP Pulse Ox 11/21/19 10:03 165/93 H 11/21/19 04:00 97.9 F 80 16 160/100 H 95 11/21/19 00:00 98.5 F 84 16 160/90 H 95 Date Exam was Performed: 11/21/19 Time Exam was Performed: 10:48 - Problem List & Annotations (1) PRES (posterior reversible encephalopathy syndrome) SNOMED Code(s): 562606049 Code(s): I67.83 - POSTERIOR REVERSIBLE ENCEPHALOPATHY SYNDROME Status: Acute Current Visit: Yes Annotation/Comment:: on MRI, spoke with Dr Alexander, [facility], stated mild case, goal to get blood pressure below 140-150 systolic. May take 36-48 hours before the confusion improves. (2) Renal insufficiency SNOMED Code(s): 411066437, 200766599 Code(s): N28.9 - DISORDER OF KIDNEY AND URETER, UNSPECIFIED Status: Acute Current Visit: Yes Annotation/Comment:: No change in her CR today, Spoke with [facility], advised ruling out multiple myeloma, getting SPEP, UPEP done while we are getting Urine sodium, Urine creatinine, urine protein. UA showed 500 protein which is new from [facility] done in Aug 2019. Creatinine at that time was 1.0. If she does not improve with blood pressure control & IVF then he recommended transfer for dialysis. (3) Change in mental status SNOMED Code(s): 727375457 Code(s): R41.82 - ALTERED MENTAL STATUS, UNSPECIFIED Status: Acute Current Visit: Yes Annotation/Comment:: secondary to PRES syndrome (4) Severe dehydration SNOMED Code(s): 081157486 Code(s): E86.0 - DEHYDRATION Status: Acute Current Visit: Yes (5) Hypercalcemia SNOMED Code(s): 14415690 Code(s): E83.52 - HYPERCALCEMIA Status: Chronic Current Visit: Yes Onset Date: ~08/19/19 Annotation/Comment:: down to 9.8 today, checking PTH, vitamin D along with SPEP, UPEP for multiple myeloma. (6) Lethargy SNOMED Code(s): 672041970 Code(s): R53.83 - OTHER FATIGUE Status: Acute Current Visit: Yes (7) Elevated C-reactive protein (CRP) SNOMED Code(s): 056228972167181 Code(s): R79.82 - ELEVATED C-REACTIVE PROTEIN (CRP) Status: Acute Current Visit: Yes (8) Macrocytic anemia SNOMED Code(s): 36940891 Code(s): D53.9 - NUTRITIONAL ANEMIA, UNSPECIFIED Status: Acute Current Visit: Yes (9) Hypertensive urgency SNOMED Code(s): 018772388 Code(s): I16.0 - HYPERTENSIVE URGENCY Status: Acute Current Visit: Yes - Problem List Review Problem List Initiated/Reviewed/Updated: Yes - My Orders Last 24 Hours: My Active Orders 11/20/19 13:30 lisinopriL [Prinivil] 10 mg PO DAILY 11/21/19 05:55 PTH, INTACT Routine 11/21/19 07:44 CREATININE,URINE RAND [URCHEM] Routine SODIUM,URINE RANDOM [URCHEM] Routine 11/21/19 08:21 PROTEIN,URINE RANDOM [URCHEM] Routine 11/21/19 09:00 Brain wo Cont [MR] Routine amLODIPine [Norvasc] 5 mg PO DAILY 11/21/19 10:47 Labetalol [Normodyne] 20 mg IVPUSH ONETIME ONE - Plan Plan:: 1. MRI showed posterior reversible encephalopathy syndrome, Dr Alexander, [facility] after review of her MRI stated mild case but blood pressure control is nguyen to resolution of symptoms. May take 36-48 hours. OT consult. 2. LR at 75 ml/hr, gentle rehydration given her age. Urine sodium, creatinine & protein to check FeNa to see if she is prerenal. Also getting UPEP, SPEP to rule out Multiple myeloma. Possibly also due to hypertensive urgency. If not improved with blood pressure control & IV fluids, would then need to transfer to higher level of care for dialysis. 3. Recheck labs tomorrow. 4. PTH & vitamin D for hypercalcemia, pending. 5. Adjust treatments as necessary.
[2019-11-21] MEDS: Labetalol 20 MG/4 ML Syringe IVPUSH ONE (11:38)
[2019-11-21] MEDS ORDERED: Sodium Chloride 0.9% 10 ML Syringe FLUSH PRN (11:45)
[2019-11-21] MEDS: Metoprolol Tartrate 50 MG Tab PO SCH ×2 (14:07→21:02)
[2019-11-21] MEDS ORDERED: cloNIDine 0.1 MG Tab PO PRN (18:07)
[2019-11-21] MEDS ORDERED: amLODIPine 5 MG Tab PO ONE (18:55)
[2019-11-21] MEDS: rOPINIRole 0.5 MG Tab PO SCH (20:12)
[2019-11-21] MEDS: atorvaSTATin 10 MG Tab PO SCH (20:12)
[2019-11-21] MEDS: Acetaminophen 325 MG Tab PO PRN (20:21)
[2019-11-21] MEDS: traZODone 50 MG Tab PO PRN (20:23)
[2019-11-22] MEDS: Dextrose 5%-0.45% NaCl 1,000 ML IV SCH (00:13)
[2019-11-22] MEDS: Enoxaparin 30 MG/0.3 ML Syringe SUBCUT SCH (02:44)
[2019-11-22] MEDS ORDERED: Albuterol/Ipratropium 3.0-0.5 MG/3 ML Neb Soln NEB ONE (05:19)
[2019-11-22] MEDS ORDERED: Polyethylene Glycol 3350 Powder 17 GM Packet PO PRN (07:58)
[2019-11-22] MEDS ORDERED: Metoprolol Tartrate 25 MG Tab PO SCH (09:00)
[2019-11-22] MEDS: Citalopram 20 MG Tab PO SCH (09:10)
[2019-11-22] MEDS: Pantoprazole 40 MG Tab.CR PO SCH (09:10)
[2019-11-22] MEDS: Lisinopril 20 MG Tab PO SCH (09:11)
[2019-11-22] MEDS: amLODIPine 10 MG Tab PO SCH (09:11)
[2019-11-22] MEDS: Tiotropium Inhaler 18 MCG Inhalation Powder Cap Kit of 5 INH SCH (09:11)
[2019-11-22] MEDS: Vitamin E (dl-alpha-tocopherol acetate) 400 Unit Cap PO SCH ×2 (09:12→20:25)
[2019-11-22] MEDS: Metoprolol Tartrate 50 MG Tab PO SCH ×2 (09:15→20:25)
--- NOTE | 2019-11-22 10:26 | PCM.PN ---
- General Info Date of Service: 11/22/19 Subjective Update: Cris did not sleep well last night, agitated, fell asleep around 545 this morning so sleeping for exam. Given extra amlodipine last night along with scheduled metoprolol. 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 Increased Amlodipine and Lisinopril this morning to 10 mg and 20 mg respectively. Will increase Metoprolol if needed. Use Nitro paste or Lasix as needed in between scheduled to keep her pressures controlled rather than clonidine due to rebound hypertension and will NOT do hydralazine as that can increase intracranial pressures. She did wake up for morning medications but took nurse about 30 minutes to wake up enough to swallow her medications safely. Approved her daughter Madelaine to come visit her to help with her agitation. - Patient Data Vitals - Most Recent: Last Vital Signs Temp 98 F 11/22/19 00:00 Pulse 91 11/22/19 04:45 Resp 20 11/22/19 00:00 BP 153/82 H 11/22/19 09:11 Pulse Ox 94 L 11/22/19 00:00 Orthostatic Blood Pressure [ 173/92 Standing] Orthostatic Blood Pressure [ 169/108 Sitting] Weight - Most Recent: 180 lb 3.2 oz I&O - Last 24 Hours: Intake & Output 11/21/19 11/22/19 11/22/19 22:59 06:59 14:59 Intake Total 938 544 Output Total 200 500 Balance 738 44 Lab Results Last 24 Hours: Laboratory Results - last 24 hr 11/20/19 11/21/19 11/21/19 Range/Units 00:01 12:55 14:00 Sodium (135-145) mmol/L Potassium (3.5-5.3) mmol/L Chloride (100-110) mmol/L Carbon Dioxide (21-32) mmol/L BUN (7-18) mg/dL Creatinine (0.55-1.02) mg/dL Est Cr Clr Drug Dosing mL/min Estimated GFR (MDRD) (>60) BUN/Creatinine Ratio (9-20) Glucose (80-116) mg/dL Calcium (8.6-10.2) mg/dL Vitamin D 25-Hydroxy 43.8 (30.0-100.0) ng/mL Folate >20.0 (>3.0) ng/mL Ur Random Creatinine 112 mg/dL U Random Total Protein (<11.9) mg/dL Ur Random Sodium 34 mmol/L 11/21/19 11/22/19 Range/Units 14:00 06:10 Sodium 142 (135-145) mmol/L Potassium 3.9 (3.5-5.3) mmol/L Chloride 108 (100-110) mmol/L Carbon Dioxide 25 (21-32) mmol/L BUN 50 H (7-18) mg/dL Creatinine 2.9 H* (0.55-1.02) mg/dL Est Cr Clr Drug Dosing 13.81 mL/min Estimated GFR (MDRD) 16 L (>60) BUN/Creatinine Ratio 17.2 (9-20) Glucose 110 (80-116) mg/dL Calcium 9.0 (8.6-10.2) mg/dL Vitamin D 25-Hydroxy (30.0-100.0) ng/mL Folate (>3.0) ng/mL Ur Random Creatinine mg/dL U Random Total Protein 453.9 H (<11.9) mg/dL Ur Random Sodium mmol/L Valentín Results Last 24 Hours: Microbiology 11/20/19 00:25 Aerobic Blood Culture - Preliminary Blood - Venous - Lab Draw NO GROWTH AFTER 2 DAYS Anaerobic Blood Culture - Preliminary NO GROWTH AFTER 2 DAYS 11/20/19 00:18 Aerobic Blood Culture - Preliminary Blood - Venous NO GROWTH AFTER 2 DAYS Anaerobic Blood Culture - Preliminary NO GROWTH AFTER 2 DAYS Med Orders - Current: Current Medications Acetaminophen (Tylenol) 650 mg PO Q4H PRN PRN Reason: Pain (Mild 1-3)/fever Last Admin: 11/21/19 20:21 Dose: 650 mg Amlodipine Besylate (Norvasc) 10 mg PO DAILY [facility] Last Admin: 11/22/19 09:11 Dose: 10 mg Ascorbic Acid (Vitamin C) 500 mg PO DAILY PRN PRN Reason: Other Atorvastatin Calcium (Lipitor) 10 mg PO BEDTIME [facility] Last Admin: 11/21/19 20:12 Dose: 10 mg Citalopram Hydrobromide (Celexa) 40 mg PO ACBREAKFAST [facility] Last Admin: 11/22/19 09:10 Dose: 40 mg Enoxaparin Sodium (Lovenox) 30 mg SUBCUT Q24H [facility] Last Admin: 11/22/19 02:44 Dose: 30 mg Dextrose/Sodium Chloride (Dextrose 5%-1/2 Ns) 1,000 mls @ 75 mls/hr IV ASDIRECTED [facility] Last Admin: 11/22/19 00:13 Dose: 75 mls/hr Lisinopril (Prinivil) 20 mg PO DAILY [facility] Last Admin: 11/22/19 09:11 Dose: 20 mg Magnesium Hydroxide (Milk Of Magnesia) 30 ml PO Q12H PRN PRN Reason: Constipation Metoprolol Tartrate (Lopressor) 50 mg PO Q12H [facility] Ondansetron HCl (Zofran) 4 mg IV Q4H PRN PRN Reason: Nausea/Vomiting Pantoprazole Sodium (Protonix) 40 mg PO ACBREAKFAST [facility] Last Admin: 11/22/19 09:10 Dose: 40 mg Polyethylene Glycol (Miralax) 17 gm PO DAILY PRN PRN Reason: Constipation Ropinirole HCl (Requip) 0.5 mg PO BEDTIME [facility] Last Admin: 11/21/19 20:12 Dose: 0.5 mg Sodium Chloride (Saline Flush) 10 ml FLUSH ASDIRECTED PRN PRN Reason: Keep Vein Open Tiotropium [place] (Spiriva Handihaler) 0 mcg INH DAILY [facility] Last Admin: 11/22/19 09:11 Dose: 1 puff Trazodone HCl (Trazodone) 50 mg PO BEDTIME PRN PRN Reason: Insomnia Last Admin: 11/21/19 20:23 Dose: 50 mg Vitamin E (Vitamin E) 400 units PO BID [facility] Last Admin: 11/22/19 09:12 Dose: 400 units Discontinued Medications Albuterol/Ipratropium (Duoneb 3.0-0.5 Mg/3 Ml) 3 ml NEB ONETIME ONE Stop: 11/22/19 05:20 Last Admin: 11/22/19 05:36 Dose: 3 ml Amlodipine Besylate (Norvasc) 5 mg PO DAILY [facility] Last Admin: 11/21/19 10:03 Dose: 5 mg Amlodipine Besylate (Norvasc) 5 mg PO ONETIME ONE Stop: 11/21/19 18:56 Last Admin: 11/21/19 19:14 Dose: 5 mg Clonidine HCl (Catapres) 0.1 mg PO Q8H PRN PRN Reason: Hypertension Last Admin: 11/22/19 04:57 Dose: 0.1 mg Sodium Chloride (Normal Saline) 1,000 mls @ 999 mls/hr IV ASDIRECTED [facility] Last Admin: 11/20/19 00:33 Dose: 999 mls/hr Labetalol HCl (Normodyne) 20 mg IVPUSH ONETIME ONE; Protocol Stop: 11/21/19 10:48 Last Admin: 11/21/19 11:38 Dose: 10 mg Lisinopril (Prinivil) 10 mg PO DAILY [facility] Last Admin: 11/21/19 10:03 Dose: 10 mg Metoprolol Tartrate (Lopressor) 50 mg PO BID [facility] Last Admin: 11/21/19 21:02 Dose: 50 mg Metoprolol Tartrate (Lopressor) 75 mg PO BID [facility] - Exam General: Cooperative, No Acute Distress (sleeping) Lungs: Normal Respiratory Effort, Wheezing (wet respirations) Cardiovascular: Regular Rate, Regular Rhythm GI/Abdominal Exam: Normal Bowel Sounds, Soft, Non-Tender, No Distention Extremities: No Pedal Edema Sepsis Event Note - Evaluation Sepsis Screening Result: No Definite Risk - Focused Exam Vital Signs: Vital Signs Temp Pulse Resp BP BP Pulse Ox 11/22/19 09:11 153/82 H 11/22/19 04:57 208/104 H 11/22/19 04:45 91 208/104 H 11/22/19 00:00 98 F 72 20 132/70 94 L Date Exam was Performed: 11/22/19 Time Exam was Performed: 10:21 - Problem List & Annotations (1) PRES (posterior reversible encephalopathy syndrome) SNOMED Code(s): 796065117 Code(s): I67.83 - POSTERIOR REVERSIBLE ENCEPHALOPATHY SYNDROME Status: Acute Current Visit: Yes Annotation/Comment:: on MRI, Dr Alexander, [facility], stated mild case, goal to get blood pressure below 140-150 systolic. May take 36-48 hours before the confusion improves once blood pressures are controlled. Increased Amlodipine 10 mg daily, Lisinopril 20 mg daily and Metoprolol at 50 mg bid, may increase to 75 mg bid if needed. Use Nitro paste or Lasix as needed. (2) Severe dehydration SNOMED Code(s): 303663867 Code(s): E86.0 - DEHYDRATION Status: Acute Current Visit: Yes (3) Change in mental status SNOMED Code(s): 047431169 Code(s): R41.82 - ALTERED MENTAL STATUS, UNSPECIFIED Status: Acute Current Visit: Yes Annotation/Comment:: secondary to PRES syndrome (4) Renal insufficiency SNOMED Code(s): 479762965, 282327939 Code(s): N28.9 - DISORDER OF KIDNEY AND URETER, UNSPECIFIED Status: Acute Current Visit: Yes Annotation/Comment:: Slight improvement today, signs of fluid overload on lung exam, saline lock and encourage oral intake; FeNa <0.67% , prerenal azotemia. SPEP, UPEP ordered, 24 hour urine will be done around 3 pm today, 24 hour protein also ordered. Would have to be off Lisinopril for 3 weeks in order to get renin/aldosterone levels so deferred doing these tests as her blood pressure control is first priority. (5) Hypercalcemia SNOMED Code(s): 37169260 Code(s): E83.52 - HYPERCALCEMIA Status: Resolved Current Visit: Yes Onset Date: ~08/19/19 Annotation/Comment:: down to 9.0 today, PTH pending, vitamin D within normal limits, SPEP, UPEP for multiple myeloma, pending 24 hour urine collection. (6) Lethargy SNOMED Code(s): 133185179 Code(s): R53.83 - OTHER FATIGUE Status: Acute Current Visit: Yes (7) Elevated C-reactive protein (CRP) SNOMED Code(s): 243545860975843 Code(s): R79.82 - ELEVATED C-REACTIVE PROTEIN (CRP) Status: Acute Current Visit: Yes (8) Macrocytic anemia SNOMED Code(s): 14701264 Code(s): D53.9 - NUTRITIONAL ANEMIA, UNSPECIFIED Status: Acute Current Visit: Yes (9) Hypertensive urgency SNOMED Code(s): 581657852 Code(s): I16.0 - HYPERTENSIVE URGENCY Status: Resolved Current Visit: Yes (10) Essential hypertension SNOMED Code(s): 53851084 Code(s): I10 - ESSENTIAL (PRIMARY) HYPERTENSION Status: Chronic Current Visit: Yes - Problem List Review Problem List Initiated/Reviewed/Updated: Yes - My Orders Last 24 Hours: My Active Orders 11/21/19 11:34 OT Evaluation and Treatment [CONS] Routine 11/21/19 11:45 Sodium Chloride 0.9% [Saline Flush] 10 ml FLUSH ASDIRECTED PRN 11/21/19 12:55 PROTEIN ELEC + INTERP, SERUM Routine 11/21/19 14:00 PROT ELECTRO+INTERP, 24-HR UR Routine 11/21/19 15:06 PT Evaluation and Treatment [CONS] Routine 11/21/19 15:10 PROTEIN,URINE 24HR [URCHEM] Routine 11/22/19 07:58 polyethylene glycoL 3350 [MiraLAX] 17 gm PO DAILY PRN 11/22/19 09:00 Metoprolol Tartrate [Lopressor] 50 mg PO Q12H amLODIPine [Norvasc] 10 mg PO DAILY lisinopriL [Prinivil] 20 mg PO DAILY 11/22/19 09:04 Communication Order [RC] PRN 11/22/19 Lunch Renal Non-Dialysis Diet [DIET] 11/23/19 06:00 RENAL FUNCTION PANEL,RFP [CHEM] Routine - Plan Plan:: 1. MRI showed posterior reversible encephalopathy syndrome, Dr Alexander, [facility] after review of her MRI stated mild case but blood pressure control is nguyen to resolution of symptoms. May take 36-48 hours once blood pressures are consistently controlled. PT/OT consult. 2. FeNA <0.67% shows prerenal azotemia. SL due to wet respirations, will encourage fluid intake. Urine protein was elevated at 453, 24 hour protein ordered. Also getting UPEP, SPEP to rule out Multiple myeloma. Possibly also due to hypertensive urgency. I 3. Renal panel tomorrow. Renal diet ordered. 4. PTH pending. 5. Adjust treatments as necessary. Daughter will come up to visit her mother, so she is less agitated. Had Trazodone last night but didn't sleep until around 530-600 this morning. Will add melatonin as needed.
[2019-11-22] MEDS ORDERED: Melatonin 3 MG Tab PO PRN (10:41)
[2019-11-22] MEDS: atorvaSTATin 10 MG Tab PO SCH (20:25)
[2019-11-22] MEDS: rOPINIRole 0.5 MG Tab PO SCH (20:25)
[2019-11-22] MEDS: traZODone 50 MG Tab PO PRN (22:11)
[2019-11-23] MEDS: Enoxaparin 30 MG/0.3 ML Syringe SUBCUT SCH (03:32)
[2019-11-23] MEDS: Acetaminophen 325 MG Tab PO PRN (05:04)
[2019-11-23] MEDS: Citalopram 20 MG Tab PO SCH (06:41)
[2019-11-23] MEDS: Pantoprazole 40 MG Tab.CR PO SCH (06:41)
[2019-11-23] MEDS: Metoprolol Tartrate 50 MG Tab PO SCH ×2 (08:20→20:05)
[2019-11-23] MEDS: amLODIPine 10 MG Tab PO SCH (08:20)
[2019-11-23] MEDS: Tiotropium Inhaler 18 MCG Inhalation Powder Cap Kit of 5 INH SCH (08:21)
[2019-11-23] MEDS: Vitamin E (dl-alpha-tocopherol acetate) 400 Unit Cap PO SCH ×2 (08:21→20:05)
[2019-11-23] MEDS: Lisinopril 20 MG Tab PO SCH (08:21)
--- NOTE | 2019-11-23 11:17 | PCM.PN ---
- General Info Date of Service: 11/23/19 Subjective Update: Cris is more alert this morning, breathing better. Making sentences but still trailing off when asked certain questions. Denies any pain. No nausea or vomiting. Had 100.5F temp overnight but down this morning. BC no growth to date. No cough. WBC normal. Daughter was here yesterday, helped her drink water as we had discontinued IVF due to starting getting some fluid overload in her lungs. She had positive fluid balance of 35 ml this morning which is improved. Cr down to 2.8 today. - Patient Data Vitals - Most Recent: Last Vital Signs Temp 98.6 F 11/23/19 08:00 Pulse 99 11/23/19 08:20 Resp 18 11/23/19 08:00 BP 143/79 H 11/23/19 08:21 Pulse Ox 96 11/23/19 08:00 Orthostatic Blood Pressure [ 173/92 Standing] Orthostatic Blood Pressure [ 169/108 Sitting] Weight - Most Recent: 179 lb I&O - Last 24 Hours: Intake & Output 11/22/19 11/23/19 11/23/19 22:59 06:59 14:59 Intake Total 200 200 Output Total 100 150 Balance 100 50 Lab Results Last 24 Hours: Laboratory Results - last 24 hr 11/21/19 11/22/19 11/23/19 Range/Units 05:55 15:30 06:15 WBC (4.5-12.0) X10-3/uL RBC (3.23-5.20) x10(6)uL Hgb (11.5-15.5) g/dL Hct (30.0-51.3) % MCV (80-96) fL MCH (27.7-33.6) pg MCHC (32.2-35.4) g/dL RDW (11.5-15.5) % Plt Count (125-369) X10(3)uL MPV (7.4-10.4) fL Neut % (Auto) (46-82) % Lymph % (Auto) (13-37) % Irwin % (Auto) (4-12) % Eos % (Auto) (1.0-5.0) % Baso % (Auto) (0-2) % Neut # (Auto) (1.6-8.3) # Lymph # (Auto) (0.6-5.0) # Irwin # (Auto) (0.0-1.3) # Eos # (Auto) (0.0-0.8) # Baso # (Auto) (0.0-0.2) # Sodium 141 (135-145) mmol/L Potassium 4.0 (3.5-5.3) mmol/L Chloride 107 (100-110) mmol/L Carbon Dioxide 25 (21-32) mmol/L BUN 51 H (7-18) mg/dL Creatinine 2.8 H* (0.55-1.02) mg/dL Est Cr Clr Drug Dosing 14.30 mL/min Estimated GFR (MDRD) 16 L (>60) BUN/Creatinine Ratio 18.2 (9-20) Glucose 94 (80-116) mg/dL Calcium 8.9 (8.6-10.2) mg/dL Phosphorus 3.5 (2.6-4.6) mg/dL Albumin 2.4 L (3.2-4.6) g/dL PTH Intact 14 L (15-65) pg/mL Ur Collection Duration 24 Urine Total Volume 980 Ur Total Protein Conc 219.9 mg/dL Ur Total Protein 24 Hr 2155.0 H (<149.1) mg/24hr 11/23/19 Range/Units 06:15 WBC 9.0 (4.5-12.0) X10-3/uL RBC 2.60 L (3.23-5.20) x10(6)uL Hgb 8.7 L (11.5-15.5) g/dL Hct 25.7 L (30.0-51.3) % MCV 99.1 H (80-96) fL MCH 33.5 (27.7-33.6) pg MCHC 33.8 (32.2-35.4) g/dL RDW 12.3 (11.5-15.5) % Plt Count 208 (125-369) X10(3)uL MPV 8.4 (7.4-10.4) fL Neut % (Auto) 76.4 (46-82) % Lymph % (Auto) 12.5 L (13-37) % Irwin % (Auto) 6.2 (4-12) % Eos % (Auto) 4 (1.0-5.0) % Baso % (Auto) 1 (0-2) % Neut # (Auto) 6.8 (1.6-8.3) # Lymph # (Auto) 1.1 (0.6-5.0) # Irwin # (Auto) 0.6 (0.0-1.3) # Eos # (Auto) 0.4 (0.0-0.8) # Baso # (Auto) 0.1 (0.0-0.2) # Sodium (135-145) mmol/L Potassium (3.5-5.3) mmol/L Chloride (100-110) mmol/L Carbon Dioxide (21-32) mmol/L BUN (7-18) mg/dL Creatinine (0.55-1.02) mg/dL Est Cr Clr Drug Dosing mL/min Estimated GFR (MDRD) (>60) BUN/Creatinine Ratio (9-20) Glucose (80-116) mg/dL Calcium (8.6-10.2) mg/dL Phosphorus (2.6-4.6) mg/dL Albumin (3.2-4.6) g/dL PTH Intact (15-65) pg/mL Ur Collection Duration Urine Total Volume Ur Total Protein Conc mg/dL Ur Total Protein 24 Hr (<149.1) mg/24hr Valentín Results Last 24 Hours: Microbiology 11/20/19 00:25 Aerobic Blood Culture - Preliminary Blood - Venous - Lab Draw NO GROWTH AFTER 3 DAYS Anaerobic Blood Culture - Preliminary NO GROWTH AFTER 3 DAYS 11/20/19 00:18 Aerobic Blood Culture - Preliminary Blood - Venous NO GROWTH AFTER 3 DAYS Anaerobic Blood Culture - Preliminary NO GROWTH AFTER 3 DAYS Med Orders - Current: Current Medications Acetaminophen (Tylenol) 650 mg PO Q4H PRN PRN Reason: Pain (Mild 1-3)/fever Last Admin: 11/23/19 05:04 Dose: 650 mg Amlodipine Besylate (Norvasc) 10 mg PO DAILY [facility] Last Admin: 11/23/19 08:20 Dose: 10 mg Ascorbic Acid (Vitamin C) 500 mg PO DAILY PRN PRN Reason: Other Atorvastatin Calcium (Lipitor) 10 mg PO BEDTIME [facility] Last Admin: 11/22/19 20:25 Dose: 10 mg Citalopram Hydrobromide (Celexa) 40 mg PO ACBREAKFAST [facility] Last Admin: 11/23/19 06:41 Dose: 40 mg Enoxaparin Sodium (Lovenox) 30 mg SUBCUT Q24H [facility] Last Admin: 11/23/19 03:32 Dose: 30 mg Lisinopril (Prinivil) 20 mg PO DAILY [facility] Last Admin: 11/23/19 08:21 Dose: 20 mg Magnesium Hydroxide (Milk Of Magnesia) 30 ml PO Q12H PRN PRN Reason: Constipation Melatonin (Melatonin) 6 mg PO BEDTIME PRN PRN Reason: Insomnia Last Admin: 11/22/19 23:04 Dose: 6 mg Metoprolol Tartrate (Lopressor) 50 mg PO Q12H [facility] Last Admin: 11/23/19 08:20 Dose: 50 mg Ondansetron HCl (Zofran) 4 mg IV Q4H PRN PRN Reason: Nausea/Vomiting Pantoprazole Sodium (Protonix) 40 mg PO ACBREAKFAST [facility] Last Admin: 11/23/19 06:41 Dose: 40 mg Polyethylene Glycol (Miralax) 17 gm PO DAILY PRN PRN Reason: Constipation Ropinirole HCl (Requip) 0.5 mg PO BEDTIME [facility] Last Admin: 11/22/19 20:25 Dose: 0.5 mg Sodium Chloride (Saline Flush) 10 ml FLUSH ASDIRECTED PRN PRN Reason: Keep Vein Open Tiotropium [place] (Spiriva Handihaler) 0 mcg INH DAILY [facility] Last Admin: 11/23/19 08:21 Dose: 1 puff Trazodone HCl (Trazodone) 50 mg PO BEDTIME PRN PRN Reason: Insomnia Last Admin: 11/22/19 22:11 Dose: 50 mg Vitamin E (Vitamin E) 400 units PO BID [facility] Last Admin: 11/23/19 08:21 Dose: 400 units Discontinued Medications Albuterol/Ipratropium (Duoneb 3.0-0.5 Mg/3 Ml) 3 ml NEB ONETIME ONE Stop: 11/22/19 05:20 Last Admin: 11/22/19 05:36 Dose: 3 ml Amlodipine Besylate (Norvasc) 5 mg PO DAILY [facility] Last Admin: 11/21/19 10:03 Dose: 5 mg Amlodipine Besylate (Norvasc) 5 mg PO ONETIME ONE Stop: 11/21/19 18:56 Last Admin: 11/21/19 19:14 Dose: 5 mg Clonidine HCl (Catapres) 0.1 mg PO Q8H PRN PRN Reason: Hypertension Last Admin: 11/22/19 04:57 Dose: 0.1 mg Sodium Chloride (Normal Saline) 1,000 mls @ 999 mls/hr IV ASDIRECTED [facility] Last Admin: 11/20/19 00:33 Dose: 999 mls/hr Dextrose/Sodium Chloride (Dextrose 5%-1/2 Ns) 1,000 mls @ 75 mls/hr IV ASDIRECTED [facility] Last Admin: 11/22/19 00:13 Dose: 75 mls/hr Labetalol HCl (Normodyne) 20 mg IVPUSH ONETIME ONE; Protocol Stop: 11/21/19 10:48 Last Admin: 11/21/19 11:38 Dose: 10 mg Lisinopril (Prinivil) 10 mg PO DAILY [facility] Last Admin: 11/21/19 10:03 Dose: 10 mg Metoprolol Tartrate (Lopressor) 50 mg PO BID [facility] Last Admin: 11/21/19 21:02 Dose: 50 mg Metoprolol Tartrate (Lopressor) 75 mg PO BID [facility] Last Admin: 11/22/19 15:43 Dose: Not Given - Exam General: Alert, Oriented (person, had her month correct but could not remember day or year.), Cooperative, No Acute Distress Lungs: Clear to Auscultation, Normal Respiratory Effort, Crackles (fine bibasilar) Cardiovascular: Regular Rate, Regular Rhythm GI/Abdominal Exam: Normal Bowel Sounds, Soft, Non-Tender, No Distention Extremities: No Pedal Edema Peripheral Pulses: 2+: Radial (L), Radial (R) Neurological: No New Focal Deficit Sepsis Event Note - Evaluation Sepsis Screening Result: No Definite Risk - Focused Exam Vital Signs: Vital Signs Temp Temp Pulse Pulse Resp BP BP 11/23/19 08:21 143/79 H 11/23/19 08:20 99 143/79 H 11/23/19 08:00 98.6 F 99 18 112/66 11/23/19 05:50 98.5 F 11/23/19 04:00 100.5 F 74 20 138/72 11/23/19 00:00 97.5 F 71 16 120/75 Pulse Ox 11/23/19 08:21 11/23/19 08:20 11/23/19 08:00 96 11/23/19 05:50 11/23/19 04:00 97 11/23/19 00:00 98 Date Exam was Performed: 11/23/19 Time Exam was Performed: 11:11 - Problem List & Annotations (1) PRES (posterior reversible encephalopathy syndrome) SNOMED Code(s): 214376408 Code(s): I67.83 - POSTERIOR REVERSIBLE ENCEPHALOPATHY SYNDROME Status: Acute Current Visit: Yes Annotation/Comment:: on MRI, Dr Alexander, [facility], stated mild case, goal to get blood pressure below 140-150 systolic. May take 36-48 hours before the confusion improves once blood pressures are controlled. Controlled Amlodipine 10 mg daily, Lisinopril 20 mg daily and Metoprolol at 50 mg bid Use Nitro paste or Lasix as needed. (2) Severe dehydration SNOMED Code(s): 250390783 Code(s): E86.0 - DEHYDRATION Status: Acute Current Visit: Yes (3) Change in mental status SNOMED Code(s): 320058468 Code(s): R41.82 - ALTERED MENTAL STATUS, UNSPECIFIED Status: Acute Current Visit: Yes Annotation/Comment:: secondary to PRES syndrome (4) Renal insufficiency SNOMED Code(s): 359549524, 821551315 Code(s): N28.9 - DISORDER OF KIDNEY AND URETER, UNSPECIFIED Status: Acute Current Visit: Yes Annotation/Comment:: Slight improvement today, daughter is helping us increase her oral intake of water. SPEP, UPEP pending, 24 hour protein >[address] Zaragoza at [facility](had talked with him on Thursday), she does not meet criteria for dialysis now, but would need a renal biopsy as outpatient. Continue to rehydrate. (5) Hypercalcemia SNOMED Code(s): 27053245 Code(s): E83.52 - HYPERCALCEMIA Status: Resolved Current Visit: Yes Onset Date: ~08/19/19 Annotation/Comment:: down to 8.9 today, PTH low, vitamin D within normal limits, SPEP, UPEP for multiple myeloma. (6) Lethargy SNOMED Code(s): 094637992 Code(s): R53.83 - OTHER FATIGUE Status: Acute Current Visit: Yes (7) Elevated C-reactive protein (CRP) SNOMED Code(s): 502884081868805 Code(s): R79.82 - ELEVATED C-REACTIVE PROTEIN (CRP) Status: Acute Current Visit: Yes (8) Macrocytic anemia SNOMED Code(s): 75613148 Code(s): D53.9 - NUTRITIONAL ANEMIA, UNSPECIFIED Status: Acute Current Visit: Yes (9) Hypertensive urgency SNOMED Code(s): 533793063 Code(s): I16.0 - HYPERTENSIVE URGENCY Status: Resolved Current Visit: Yes (10) Essential hypertension SNOMED Code(s): 26773893 Code(s): I10 - ESSENTIAL (PRIMARY) HYPERTENSION Status: Chronic Current Visit: Yes - Problem List Review Problem List Initiated/Reviewed/Updated: Yes - My Orders Last 24 Hours: My Active Orders 11/22/19 10:41 Melatonin 6 mg PO BEDTIME PRN 11/22/19 15:30 PROT ELECTRO+INTERP, 24-HR UR Routine 11/22/19 Lunch Renal Non-Dialysis Diet [DIET] 11/25/19 06:00 RENAL FUNCTION PANEL,RFP [CHEM] Routine - Plan Plan:: 1. MRI showed posterior reversible encephalopathy syndrome, Dr Alexander, [facility] after review of her MRI stated mild case but blood pressure control is nguyen to resolution of symptoms. May take 36-48 hours once blood pressures are consistently controlled, blood pressures improved since about noon yesterday. Still some confusion, may need to be transferred to swing bed for further rehab. 2. PT/OT working with her, improving. 2. 24 hr protein 2155 mg/24hr, UPEP, SPEP pending to rule out Multiple myeloma. Spoke with Dr Zaragoza, [facility], continue hydration and will need renal biopsy as outpatient. He stated she is not a candidate for dialysis at this point. 3. Renal panel tomorrow. Renal diet ordered. 4. PTH low, with normal vitamin D3 level. 5. Adjust treatments as necessary. Daughter will come up to visit her mother again today, she was able to get her mom to drink well yesterday, so will continue to encourage fluids today. Repeat labs Thursday.
[2019-11-23 13:13] LABS: A/G RATIO 1.2 (0.7-1.7); ALBUMIN 2.6 g/dL (2.9-4.4); ALPHA-1-GLOBULIN 0.3 g/dL (0.0-0.4); ALPHA-2-GLOBULIN 0.6 g/dL (0.4-1.0); BETA GLOBULIN 0.8 g/dL (0.7-1.3); GAMMA GLOBULIN 0.4 g/dL (0.4-1.8); GLOBULIN, TOTAL 2.1 g/dL (2.2-3.9); M-SPIKE Not Observed g/dL (Not Observed); PROTEIN, TOTAL, SERUM 4.7 g/dL (6.0-8.5)
[2019-11-23] MEDS: rOPINIRole 0.5 MG Tab PO SCH (20:05)
[2019-11-23] MEDS: atorvaSTATin 10 MG Tab PO SCH (20:05)
[2019-11-24] MEDS: Enoxaparin 30 MG/0.3 ML Syringe SUBCUT SCH (03:57)
[2019-11-24] MEDS: Citalopram 20 MG Tab PO SCH (06:41)
[2019-11-24] MEDS: Pantoprazole 40 MG Tab.CR PO SCH (06:41)
--- NOTE | 2019-11-24 08:42 | PCM.PN ---
- General Info Date of Service: 11/24/19 Subjective Update: Cris is more alert and making full sentences, finishing her thoughts. Denies any pain, shortness of breath. No abdominal pain, trouble urinating. Had bowel movement. Some edema in lower legs. Walking in the halls with nursing, working with PT/OT. - Patient Data Vitals - Most Recent: Last Vital Signs Temp 98.0 F 11/24/19 04:00 Pulse 71 11/24/19 04:00 Resp 16 11/24/19 04:00 BP 165/69 H 11/24/19 04:00 Pulse Ox 97 11/24/19 04:00 Orthostatic Blood Pressure [ 173/92 Standing] Orthostatic Blood Pressure [ 169/108 Sitting] Weight - Most Recent: 177 lb 8 oz I&O - Last 24 Hours: Intake & Output 11/23/19 11/24/19 11/24/19 22:59 06:59 14:59 Intake Total 240 480 Output Total 400 650 Balance -160 -170 Lab Results Last 24 Hours: Laboratory Results - last 24 hr 11/21/19 11/23/19 Range/Units 12:55 06:15 WBC 9.0 (4.5-12.0) X10-3/uL RBC 2.60 L (3.23-5.20) x10(6)uL Hgb 8.7 L (11.5-15.5) g/dL Hct 25.7 L (30.0-51.3) % MCV 99.1 H (80-96) fL MCH 33.5 (27.7-33.6) pg MCHC 33.8 (32.2-35.4) g/dL RDW 12.3 (11.5-15.5) % Plt Count 208 (125-369) X10(3)uL MPV 8.4 (7.4-10.4) fL Neut % (Auto) 76.4 (46-82) % Lymph % (Auto) 12.5 L (13-37) % Rich % (Auto) 6.2 (4-12) % Eos % (Auto) 4 (1.0-5.0) % Baso % (Auto) 1 (0-2) % Neut # (Auto) 6.8 (1.6-8.3) # Lymph # (Auto) 1.1 (0.6-5.0) # Rich # (Auto) 0.6 (0.0-1.3) # Eos # (Auto) 0.4 (0.0-0.8) # Baso # (Auto) 0.1 (0.0-0.2) # Total Protein (PEP) 4.7 L (6.0-8.5) g/dL Albumin (PEP) 2.6 L (2.9-4.4) g/dL Globulin (PEP) 2.1 L (2.2-3.9) g/dL Albumin/Globulin (PEP) 1.2 (0.7-1.7) Rnoer-5-Widbfbcse 0.3 (0.0-0.4) g/dL Ixeat-5-Gyqgriara 0.6 (0.4-1.0) g/dL Beta Globulins 0.8 (0.7-1.3) g/dL Gamma Globulins 0.4 (0.4-1.8) g/dL PEP Note Comment (.) PEP Interpretation Note: (.) FINESSE M-Kwesi Not observed (Not Observed) g/dL Valentín Results Last 24 Hours: Microbiology 11/20/19 00:25 Aerobic Blood Culture - Preliminary Blood - Venous - Lab Draw NO GROWTH AFTER 4 DAYS Anaerobic Blood Culture - Preliminary NO GROWTH AFTER 4 DAYS 11/20/19 00:18 Aerobic Blood Culture - Preliminary Blood - Venous NO GROWTH AFTER 4 DAYS Anaerobic Blood Culture - Preliminary NO GROWTH AFTER 4 DAYS Med Orders - Current: Current Medications Acetaminophen (Tylenol) 650 mg PO Q4H PRN PRN Reason: Pain (Mild 1-3)/fever Last Admin: 11/23/19 05:04 Dose: 650 mg Amlodipine Besylate (Norvasc) 10 mg PO DAILY [facility] Last Admin: 11/23/19 08:20 Dose: 10 mg Ascorbic Acid (Vitamin C) 500 mg PO DAILY PRN PRN Reason: Other Atorvastatin Calcium (Lipitor) 10 mg PO BEDTIME [facility] Last Admin: 11/23/19 20:05 Dose: 10 mg Citalopram Hydrobromide (Celexa) 40 mg PO ACBREAKFAST [facility] Last Admin: 11/24/19 06:41 Dose: 40 mg Enoxaparin Sodium (Lovenox) 30 mg SUBCUT Q24H [facility] Last Admin: 11/24/19 03:57 Dose: 30 mg Lisinopril (Prinivil) 20 mg PO DAILY [facility] Last Admin: 11/23/19 08:21 Dose: 20 mg Magnesium Hydroxide (Milk Of Magnesia) 30 ml PO Q12H PRN PRN Reason: Constipation Melatonin (Melatonin) 6 mg PO BEDTIME PRN PRN Reason: Insomnia Last Admin: 11/22/19 23:04 Dose: 6 mg Metoprolol Tartrate (Lopressor) 50 mg PO Q12H [facility] Last Admin: 11/23/19 20:05 Dose: 50 mg Ondansetron HCl (Zofran) 4 mg IV Q4H PRN PRN Reason: Nausea/Vomiting Pantoprazole Sodium (Protonix) 40 mg PO ACBREAKFAST [facility] Last Admin: 11/24/19 06:41 Dose: 40 mg Polyethylene Glycol (Miralax) 17 gm PO DAILY PRN PRN Reason: Constipation Ropinirole HCl (Requip) 0.5 mg PO BEDTIME [facility] Last Admin: 11/23/19 20:05 Dose: 0.5 mg Sodium Chloride (Saline Flush) 10 ml FLUSH ASDIRECTED PRN PRN Reason: Keep Vein Open Tiotropium [place] (Spiriva Handihaler) 0 mcg INH DAILY [facility] Last Admin: 11/23/19 08:21 Dose: 1 puff Trazodone HCl (Trazodone) 50 mg PO BEDTIME PRN PRN Reason: Insomnia Last Admin: 11/22/19 22:11 Dose: 50 mg Vitamin E (Vitamin E) 400 units PO BID [facility] Last Admin: 11/23/19 20:05 Dose: 400 units Discontinued Medications Albuterol/Ipratropium (Duoneb 3.0-0.5 Mg/3 Ml) 3 ml NEB ONETIME ONE Stop: 11/22/19 05:20 Last Admin: 11/22/19 05:36 Dose: 3 ml Amlodipine Besylate (Norvasc) 5 mg PO DAILY [facility] Last Admin: 11/21/19 10:03 Dose: 5 mg Amlodipine Besylate (Norvasc) 5 mg PO ONETIME ONE Stop: 11/21/19 18:56 Last Admin: 11/21/19 19:14 Dose: 5 mg Clonidine HCl (Catapres) 0.1 mg PO Q8H PRN PRN Reason: Hypertension Last Admin: 11/22/19 04:57 Dose: 0.1 mg Sodium Chloride (Normal Saline) 1,000 mls @ 999 mls/hr IV ASDIRECTED [facility] Last Admin: 11/20/19 00:33 Dose: 999 mls/hr Dextrose/Sodium Chloride (Dextrose 5%-1/2 Ns) 1,000 mls @ 75 mls/hr IV ASDIRECTED [facility] Last Admin: 11/22/19 00:13 Dose: 75 mls/hr Labetalol HCl (Normodyne) 20 mg IVPUSH ONETIME ONE; Protocol Stop: 11/21/19 10:48 Last Admin: 11/21/19 11:38 Dose: 10 mg Lisinopril (Prinivil) 10 mg PO DAILY [facility] Last Admin: 11/21/19 10:03 Dose: 10 mg Metoprolol Tartrate (Lopressor) 50 mg PO BID [facility] Last Admin: 11/21/19 21:02 Dose: 50 mg Metoprolol Tartrate (Lopressor) 75 mg PO BID [facility] Last Admin: 11/22/19 15:43 Dose: Not Given - Exam General: Alert, Oriented, Cooperative, No Acute Distress Lungs: Clear to Auscultation, Normal Respiratory Effort Cardiovascular: Regular Rate, Regular Rhythm GI/Abdominal Exam: Normal Bowel Sounds, Soft, Non-Tender, No Distention Extremities: Pedal Edema (trace BLE) Peripheral Pulses: 2+: Radial (L), Radial (R) Neurological: No New Focal Deficit, Normal Speech, Normal Tone Sepsis Event Note - Evaluation Sepsis Screening Result: No Definite Risk - Focused Exam Vital Signs: Vital Signs Temp Pulse Resp BP Pulse Ox 11/24/19 04:00 98.0 F 71 16 165/69 H 97 11/24/19 00:00 97.6 F 67 16 136/68 97 Date Exam was Performed: 11/24/19 Time Exam was Performed: 08:37 - Problem List & Annotations (1) PRES (posterior reversible encephalopathy syndrome) SNOMED Code(s): 655277308 Code(s): I67.83 - POSTERIOR REVERSIBLE ENCEPHALOPATHY SYNDROME Status: Acute Current Visit: Yes Annotation/Comment:: on MRI, Dr Alexander, [facility], stated mild case, goal to get blood pressure below 140-150 systolic. May take 36-48 hours before the confusion improves once blood pressures are controlled. Controlled Amlodipine 10 mg daily, Lisinopril 20 mg daily and Metoprolol at 50 mg bid Use Nitro paste or Lasix as needed. (2) Severe dehydration SNOMED Code(s): 674640231 Code(s): E86.0 - DEHYDRATION Status: Acute Current Visit: Yes (3) Change in mental status SNOMED Code(s): 918815281 Code(s): R41.82 - ALTERED MENTAL STATUS, UNSPECIFIED Status: Acute Current Visit: Yes Annotation/Comment:: secondary to PRES syndrome (4) Renal insufficiency SNOMED Code(s): 896057340, 559171480 Code(s): N28.9 - DISORDER OF KIDNEY AND URETER, UNSPECIFIED Status: Acute Current Visit: Yes Annotation/Comment:: Labs tomorrow, daughter is helping us increase her oral intake of water. SPEP showed hypoalbuminemia, UPEP pending , 24 hour protein >[address] Zaragoza at [facility](had talked with him on Thursday), she does not meet criteria for dialysis now, but would need a renal biopsy as outpatient. Continue to rehydrate. (5) Hypercalcemia SNOMED Code(s): 64763887 Code(s): E83.52 - HYPERCALCEMIA Status: Resolved Current Visit: Yes Onset Date: ~08/19/19 (6) Lethargy SNOMED Code(s): 841862657 Code(s): R53.83 - OTHER FATIGUE Status: Resolved Current Visit: Yes (7) Elevated C-reactive protein (CRP) SNOMED Code(s): 565061190560807 Code(s): R79.82 - ELEVATED C-REACTIVE PROTEIN (CRP) Status: Acute Current Visit: Yes (8) Macrocytic anemia SNOMED Code(s): 90095246 Code(s): D53.9 - NUTRITIONAL ANEMIA, UNSPECIFIED Status: Acute Current Visit: Yes (9) Hypertensive urgency SNOMED Code(s): 309346905 Code(s): I16.0 - HYPERTENSIVE URGENCY Status: Resolved Current Visit: Yes (10) Essential hypertension SNOMED Code(s): 00430872 Code(s): I10 - ESSENTIAL (PRIMARY) HYPERTENSION Status: Chronic Current Visit: Yes - Problem List Review Problem List Initiated/Reviewed/Updated: Yes - My Orders Last 24 Hours: My Active Orders 03/20/20 06:00 RENAL FUNCTION PANEL,RFP [CHEM] Routine - Plan Plan:: 1. Blood pressure controlled, symptoms improving. MRI showed posterior reversible encephalopathy syndrome, Dr Alexander, [facility] after review of her MRI stated mild case but blood pressure control is nguyen to resolution of symptoms. May take 36-48 hours once blood pressures are consistently controlled. 2. PT/OT working with her, improving. 2. 24 hr protein 2155 mg/24hr, UPEP pending, SPEP hypoalbuminemia. Spoke with Dr Zaragoza, [facility], continue hydration and will need renal biopsy as outpatient. He stated she is not a candidate for dialysis at this point. 3. Renal panel tomorrow. Renal diet ordered. 4. PTH low, with normal vitamin D3 level. 5. Adjust treatments as necessary. Daughter will come up to visit her mother again today, she was able to get her mom to drink well yesterday, so will continue to encourage fluids today. Repeat labs Thursday.
[2019-11-24] MEDS: Tiotropium Inhaler 18 MCG Inhalation Powder Cap Kit of 5 INH SCH (09:21)
[2019-11-24] MEDS: Vitamin E (dl-alpha-tocopherol acetate) 400 Unit Cap PO SCH ×2 (09:22→20:29)
[2019-11-24] MEDS: Metoprolol Tartrate 50 MG Tab PO SCH ×2 (09:22→20:29)
[2019-11-24] MEDS: amLODIPine 10 MG Tab PO SCH (09:24)
[2019-11-24] MEDS: Lisinopril 20 MG Tab PO SCH (09:24)
[2019-11-24] MEDS: rOPINIRole 0.5 MG Tab PO SCH (20:29)
[2019-11-24] MEDS: atorvaSTATin 10 MG Tab PO SCH (20:29)
[2019-11-25] MEDS: Enoxaparin 30 MG/0.3 ML Syringe SUBCUT SCH (04:28)
[2019-11-25] MEDS: Pantoprazole 40 MG Tab.CR PO SCH (08:08)
[2019-11-25] MEDS: Citalopram 20 MG Tab PO SCH (08:08)
[2019-11-25] MEDS: Vitamin E (dl-alpha-tocopherol acetate) 400 Unit Cap PO SCH (08:09)
[2019-11-25] MEDS: Tiotropium Inhaler 18 MCG Inhalation Powder Cap Kit of 5 INH SCH (08:10)
[2019-11-25] MEDS: amLODIPine 10 MG Tab PO SCH (08:11)
[2019-11-25] MEDS: Lisinopril 20 MG Tab PO SCH (08:12)
[2019-11-25] MEDS: Metoprolol Tartrate 50 MG Tab PO SCH (08:12)
[2019-11-25 08:13] VITALS: BP 164/79; PULSE 66
--- NOTE | 2019-11-25 09:06 | PCM.DCSUM1 ---
Discharge Summary - Hospital Course HPI Initial Comments: ER provider: c/o inc'd confusion all day. Her reports that she "has not been right" all day, has had trouble completing her thoughts, tonight she had trouble speaking and it seemed a little worse tonight. pt tried to take her evening meds twice, which is unusual. pt needed help getting into her pajamas, which is unusual. no n/v, no f/c/d, has not been ill otherwise. dtr reports that pt and have had a cough. This morning Deidra is confused, does not finish her sentences. Can't remember how long her symptoms have been going on. Thinks thursday. Knows she is in the hospital but initially thought in [place] but knew that was not right but couldn't remember the name. Denies any fevers, chills, nasal congestion, shortness of breath, chest pain but sore throat & cough. CT head showed sinuses were clear. No acute changes but old lacunar infarcts and small vessel ischemic changes. CXR clear. Influenza negative. Abdominal pain, lower areas, states she' s had diarrhea but no nausea or vomiting. Can't tell me about urination. No pain elsewhere. No edema. PCP is Dr Polanco. CT abdomen showed extensive colonic diverticulosis without diverticulitis. No hydronephrosis but slight nonspecific fat stranding at level of kidneys. Trace free fluid. S/p hysterectomy. Kidney cyst. Slight elevation of WBC, Renal insufficiency, Creatinine at last PCP visit 08/19/2019 was 1.0; Hypercalcemia, possibly secondary to uremia, in Aug 2019 was 11.5. CRP slight elevated at 1.4. Diagnosis: Stroke: No - Discharge Data Discharge Date: 11/25/19 Discharge Disposition: Home, W Home Health Agency 06 Condition: Fair - Referral to Home Health Date of Face to Face Encounter: 11/25/19 Reason for Homebound Status: no driving, acute renal failure with proteinuria, PRES syndrome Primary Care Physician: Nir Polanco MD Skilled Need: PT/OT for strengthening & gait. Nursing for medications. - Discharge Diagnosis/Problem(s) (1) PRES (posterior reversible encephalopathy syndrome) SNOMED Code(s): 056478770 ICD Code: I67.83 - POSTERIOR REVERSIBLE ENCEPHALOPATHY SYNDROME Status: Acute Current Visit: Yes Problem Details: on MRI, Dr Alexander, [facility], stated mild case, goal to get blood pressure below 140-150 systolic. May take 36-48 hours before the confusion improves once blood pressures are controlled. Dr Alexander advised she would not need Neurology follow up. Controlled Amlodipine 10 mg daily, Lisinopril 20 mg daily and Metoprolol at 50 mg bid Use Nitro paste or Lasix as needed. (2) Severe dehydration SNOMED Code(s): 788779109 ICD Code: E86.0 - DEHYDRATION Status: Acute Current Visit: Yes (3) Change in mental status SNOMED Code(s): 383853727 ICD Code: R41.82 - ALTERED MENTAL STATUS, UNSPECIFIED Status: Acute Current Visit: Yes Problem Details: secondary to PRES syndrome (4) Renal insufficiency SNOMED Code(s): 251889289, 691115534 ICD Code: N28.9 - DISORDER OF KIDNEY AND URETER, UNSPECIFIED Status: Acute Current Visit: Yes Problem Details: Labs tomorrow, daughter is helping us increase her oral intake of water. SPEP showed hypoalbuminemia, UPEP pending, 24 hour protein >[address] Zaragoza at [facility](had talked with him on Thursday), she does not meet criteria for dialysis now, but would need a renal biopsy as outpatient. Continue to rehydrate. (5) Hypercalcemia SNOMED Code(s): 81187310 ICD Code: E83.52 - HYPERCALCEMIA Status: Resolved Current Visit: Yes Onset Date: ~08/19/19 (6) Lethargy SNOMED Code(s): 127167575 ICD Code: R53.83 - OTHER FATIGUE Status: Resolved Current Visit: Yes (7) Elevated C-reactive protein (CRP) SNOMED Code(s): 601923040438406 ICD Code: R79.82 - ELEVATED C-REACTIVE PROTEIN (CRP) Status: Acute Current Visit: Yes (8) Macrocytic anemia SNOMED Code(s): 27230280 ICD Code: D53.9 - NUTRITIONAL ANEMIA, UNSPECIFIED Status: Acute Current Visit: Yes (9) Hypertensive urgency SNOMED Code(s): 458513353 ICD Code: I16.0 - HYPERTENSIVE URGENCY Status: Resolved Current Visit: Yes (10) Essential hypertension SNOMED Code(s): 32027975 ICD Code: I10 - ESSENTIAL (PRIMARY) HYPERTENSION Status: Chronic Current Visit: Yes - Patient Summary/Data Consults: Consultations 11/21/19 11:34 OT Evaluation and Treatment [CONS] Routine Please Evaluate and Treat. OT Reason for Consult: ADL's Special Instructions: posterior reversible encephalopathy syndrome. This query below is only for informational purposes and is not editable. Admission Diagnosis/Problem: Confusion 11/21/19 15:06 PT Evaluation and Treatment [CONS] Routine Please Evaluate and Treat. PT Reason for Consult: Ambulation Special Instructions: posterior reversible encephalopathy syndrome This query below is only for informational purposes and is not editable. Admission Diagnosis/Problem: Confusion Hospital Course: Deidra was very confused initially, not making complete sentences or finishing her thoughts. MRI on Thursday showed PRES syndrome(Posterior reversible encephalopathy syndrome), spoke with [facility], advised blood pressure control <150/90 and once blood pressure controlled, would have resolution of symptoms within 36-48 hours. Patient's blood pressure has been controlled since 11/21, she has progressively improved, getting back to her baseline cognition per family. PT/OT were consulted on Thursday, she has made great strides with them since and would benefit from Home Health with therapy services rather than swing bed. Her calcium was 12.5 when she came in, came down with IV fluids, has remained in normal range correcting for her low albumin. She had 500 protein in UA, urine sodium, creatinine, & protein obtained, showed FeNa of 0.67 but protein was 450s. 24 hour urine protein and electrophoresis collected, protein came back 2155/24hr. UPEP still pending. SPEP came back hypoalbuminemia, no M-spike. Her creatinine has slowly come down with hydration, first with IV fluids then with oral intake. Her oral intake has improved with resolution of her confusion. Creatinine on admit was 3.1 and today 2.4. Potassium has remained within normal range. Had spoke with [facility] on Thursday & did not feel she was candidate for dialysis at this time but she would need outpatient appointment to be set up for renal biopsy. She did have workup in ER for infectious causes but WBC came down to normal with IV fluids, BC had no growth to date. Had 1 temp overnight but WBC in morning was normal. No signs of any infectious causes during hospital stay. - Patient Instructions Diet: Renal Diet Activity: As Tolerated Driving: Do Not Drive Showering/Bathing: May Shower Other/Special Instructions: Follow up with [facility] as soon as available for renal biopsy and go over urine electrophoresis test which is pending at time of discharge. Follow up with [facility] in 1 week for your blood pressures. Take home blood pressure twice a day. - Discharge Plan *PRESCRIPTION DRUG MONITORING PROGRAM REVIEWED*: Not Applicable *COPY OF PRESCRIPTION DRUG MONITORING REPORT IN PATIENT GIOVANNI: Not Applicable Prescriptions/Med Rec: amLODIPine Besylate [Amlodipine Besylate] 10 mg PO DAILY 30 Days #30 tablet lisinopriL [Prinivil] 20 mg PO DAILY 30 Days #30 tablet Metoprolol Tartrate [Lopressor] 50 mg PO Q12H 30 Days #60 tablet Home Medications: Home Meds Ascorbate Calcium [Vitamin C] 500 mg PO DAILY PRN 08/21/16 [History] Cholecalciferol (Vitamin D3) [Vitamin D3] 1,000 units PO DAILY 08/21/16 [History ] Citalopram Hydrobromide [Celexa] 40 mg PO ACBREAKFAST 08/21/16 [History] Multivitamin with Minerals [Multiple Vitamin] 1 tab PO BID 08/21/16 [History] Tiotropium [Spiriva HandiHaler] 1 puff PO DAILY 08/21/16 [History] Vitamin E 400 unit PO BID 08/21/16 [History] rOPINIRole HCl [Requip] 0.5 mg PO BEDTIME 08/21/16 [History] traZODone 50 - 100 mg PO BEDTIME PRN 08/21/16 [History] Pantoprazole Sodium [Protonix] 40 mg PO DAILY 11/25/16 [History] Acetaminophen [Tylenol Arthritis] 650 mg PO ASDIRECTED PRN 11/26/16 [History] atorvaSTATin [Lipitor] 10 mg PO BEDTIME 11/20/19 [History] polyethylene glycoL 3350 [MiraLAX] 17 gm PO DAILY PRN 11/20/19 [History] Melatonin 6 mg PO BEDTIME PRN tablet 11/25/19 [Rx] Metoprolol Tartrate [Lopressor] 50 mg PO Q12H 30 Days #60 tablet 11/25/19 [Rx] amLODIPine Besylate [Amlodipine Besylate] 10 mg PO DAILY 30 Days #30 tablet [Rx] lisinopriL [Prinivil] 20 mg PO DAILY 30 Days #30 tablet 11/25/19 [Rx] Patient Handouts: Food Basics for Chronic Kidney Disease, Toxic Metabolic Encephalopathy, Hypertension, Adult, [id number], Fall Prevention in Hospitals , Adult, Chronic Kidney Disease, Adult, Calcium Content in Foods, Venous Thromboembolism Prevention Forms: ED Department Discharge Referrals: Alin Zaragoza MD [Ordering Only Provider] - Nir Polanco MD [Primary Care Provider] - - Discharge Summary/Plan Comment DC Time >30 min.: Yes - General Info Date of Service: 11/25/19 Subjective Update: Deidra is much better this morning, thought processes are coherent and speaking in full sentences. She is asking questions on renal diet and what she is to do at home. Initially she was going to go home to her daughter's but her is going to take off work and stay with her for next week. She denies any headaches, no abdominal pain, nausea or vomiting. Had some diarrhea but states she fluctuates between constipation & diarrhea at home. Edema in feet but TEDs are not on yet. - Patient Data Vitals - Most Recent: Last Vital Signs Temp 98.1 F 11/25/19 08:12 Pulse 66 11/25/19 08:12 Resp 18 11/25/19 08:12 BP 164/79 H 11/25/19 08:12 Pulse Ox 96 11/25/19 08:12 Orthostatic Blood Pressure [ 173/92 Standing] Orthostatic Blood Pressure [ 169/108 Sitting] Weight - Most Recent: 176 lb 1.6 oz I&O - Last 24 hours: Intake & Output 11/24/19 11/25/19 11/25/19 22:59 06:59 14:59 Intake Total 400 200 Output Total 800 200 Balance -400 0 Lab Results - Last 24 hrs: Laboratory Results - last 24 hr 11/25/19 Range/Units 06:15 Sodium 145 (135-145) mmol/L Potassium 3.9 (3.5-5.3) mmol/L Chloride 110 (100-110) mmol/L Carbon Dioxide 29 (21-32) mmol/L BUN 49 H (7-18) mg/dL Creatinine 2.4 H* (0.55-1.02) mg/dL Est Cr Clr Drug Dosing 16.68 mL/min Estimated GFR (MDRD) 20 L (>60) BUN/Creatinine Ratio 20.4 H (9-20) Glucose 93 (80-116) mg/dL Calcium 8.7 (8.6-10.2) mg/dL Phosphorus 3.5 (2.6-4.6) mg/dL Albumin 2.5 L (3.2-4.6) g/dL JULITO Results - Last 24 hrs: Microbiology 11/20/19 00:25 Aerobic Blood Culture - Final Blood - Venous - Lab Draw NO GROWTH AFTER 5 DAYS Anaerobic Blood Culture - Final NO GROWTH AFTER 5 DAYS 11/20/19 00:18 Aerobic Blood Culture - Final Blood - Venous NO GROWTH AFTER 5 DAYS Anaerobic Blood Culture - Final NO GROWTH AFTER 5 DAYS Med Orders - Current: Current Medications Acetaminophen (Tylenol) 650 mg PO Q4H PRN PRN Reason: Pain (Mild 1-3)/fever Last Admin: 11/23/19 05:04 Dose: 650 mg Amlodipine Besylate (Norvasc) 10 mg PO DAILY [facility] Last Admin: 11/25/19 08:11 Dose: 10 mg Ascorbic Acid (Vitamin C) 500 mg PO DAILY PRN PRN Reason: Other Atorvastatin Calcium (Lipitor) 10 mg PO BEDTIME [facility] Last Admin: 11/24/19 20:29 Dose: 10 mg Citalopram Hydrobromide (Celexa) 40 mg PO ACBREAKFAST [facility] Last Admin: 11/25/19 08:08 Dose: 40 mg Enoxaparin Sodium (Lovenox) 30 mg SUBCUT Q24H [facility] Last Admin: 11/25/19 04:28 Dose: 30 mg Lisinopril (Prinivil) 20 mg PO DAILY [facility] Last Admin: 11/25/19 08:12 Dose: 20 mg Magnesium Hydroxide (Milk Of Magnesia) 30 ml PO Q12H PRN PRN Reason: Constipation Melatonin (Melatonin) 6 mg PO BEDTIME PRN PRN Reason: Insomnia Last Admin: 11/22/19 23:04 Dose: 6 mg Metoprolol Tartrate (Lopressor) 50 mg PO Q12H [facility] Last Admin: 11/25/19 08:12 Dose: 50 mg Ondansetron HCl (Zofran) 4 mg IV Q4H PRN PRN Reason: Nausea/Vomiting Pantoprazole Sodium (Protonix) 40 mg PO ACBREAKFAST [facility] Last Admin: 11/25/19 08:08 Dose: 40 mg Polyethylene Glycol (Miralax) 17 gm PO DAILY PRN PRN Reason: Constipation Ropinirole HCl (Requip) 0.5 mg PO BEDTIME [facility] Last Admin: 11/24/19 20:29 Dose: 0.5 mg Sodium Chloride (Saline Flush) 10 ml FLUSH ASDIRECTED PRN PRN Reason: Keep Vein Open Tiotropium [place] (Spiriva Handihaler) 0 mcg INH DAILY [facility] Last Admin: 11/25/19 08:10 Dose: 1 puff Trazodone HCl (Trazodone) 50 mg PO BEDTIME PRN PRN Reason: Insomnia Last Admin: 11/22/19 22:11 Dose: 50 mg Vitamin E (Vitamin E) 400 units PO BID [facility] Last Admin: 11/25/19 08:09 Dose: 400 units Discontinued Medications Albuterol/Ipratropium (Duoneb 3.0-0.5 Mg/3 Ml) 3 ml NEB ONETIME ONE Stop: 11/22/19 05:20 Last Admin: 11/22/19 05:36 Dose: 3 ml Amlodipine Besylate (Norvasc) 5 mg PO DAILY [facility] Last Admin: 11/21/19 10:03 Dose: 5 mg Amlodipine Besylate (Norvasc) 5 mg PO ONETIME ONE Stop: 11/21/19 18:56 Last Admin: 11/21/19 19:14 Dose: 5 mg Clonidine HCl (Catapres) 0.1 mg PO Q8H PRN PRN Reason: Hypertension Last Admin: 11/22/19 04:57 Dose: 0.1 mg Sodium Chloride (Normal Saline) 1,000 mls @ 999 mls/hr IV ASDIRECTED [facility] Last Admin: 11/20/19 00:33 Dose: 999 mls/hr Dextrose/Sodium Chloride (Dextrose 5%-1/2 Ns) 1,000 mls @ 75 mls/hr IV ASDIRECTED [facility] Last Admin: 11/22/19 00:13 Dose: 75 mls/hr Labetalol HCl (Normodyne) 20 mg IVPUSH ONETIME ONE; Protocol Stop: 11/21/19 10:48 Last Admin: 11/21/19 11:38 Dose: 10 mg Lisinopril (Prinivil) 10 mg PO DAILY [facility] Last Admin: 11/21/19 10:03 Dose: 10 mg Metoprolol Tartrate (Lopressor) 50 mg PO BID [facility] Last Admin: 11/21/19 21:02 Dose: 50 mg Metoprolol Tartrate (Lopressor) 75 mg PO BID [facility] Last Admin: 11/22/19 15:43 Dose: Not Given - Exam General: Reports: Alert, Oriented, Cooperative, No Acute Distress Lungs: Reports: Clear to Auscultation, Normal Respiratory Effort Cardiovascular: Reports: Regular Rate, Regular Rhythm GI/Abdominal Exam: Normal Bowel Sounds, Soft, Non-Tender, No Distention Extremities: Pedal Edema (1+ BLE) Neurological: Reports: Normal Speech Psy/Mental Status: Reports: Normal Affect, Normal Mood
[2019-11-28 09:09] LABS: M-SPIKE, % Not Observed % (Not Observed); PROTEIN,TOTAL,URINE 233.8 mg/dL (Not Estab.)
== END 2019-11-25 13:10 | disposition home health service (06) | DRG 71 ==
LOC: FB.ED 23:38 → FB.MS 11-20 02:06
PROVIDERS: ADMIT Emergency Medicine; ATTEND Family Medicine
DX: I67.83 Posterior reversible encephalopathy syndrome (principal); N17.9 Acute kidney failure, unspecified; R41.82 Altered mental status, unspecified; R53.83 Other fatigue; N28.9 Disorder of kidney and ureter, unspecified; I16.0 Hypertensive urgency; E86.0 Dehydration; R79.82 Elevated C-reactive protein (CRP); E83.52 Hypercalcemia; G47.00 Insomnia, unspecified; E66.9 Obesity, unspecified; D53.9 Nutritional anemia, unspecified; I10 Essential (primary) hypertension; E78.00 Pure hypercholesterolemia, unspecified; K21.9 Gastro-esophageal reflux disease without esophagitis; M06.9 Rheumatoid arthritis, unspecified; Z86.12 Personal history of poliomyelitis; Z86.11 Personal history of tuberculosis; Z88.5 Allergy status to narcotic agent; Z87.440 Personal history of urinary (tract) infections; F32.9 Major depressive disorder, single episode, unspecified; Z68.32 Body mass index [BMI] 32.0-32.9, adult; E78.5 Hyperlipidemia, unspecified; Z90.710 Acquired absence of both cervix and uterus; Z96.649 Presence of unspecified artificial hip joint; Z96.659 Presence of unspecified artificial knee joint; Z96.619 Presence of unspecified artificial shoulder joint; Z88.0 Allergy status to penicillin; Z88.6 Allergy status to analgesic agent; Z79.899 Other long term (current) drug therapy
CPT/HCPCS: 36415; 70450; 70551; 71045; 71046; 74176; 80048; 80053; 80069; 81001; 82306; 82570; 82607; 82746; 82962; 83605; 83970; 84156; 84165; 84166; 84300; 84484; 85025; 85610; 86140; 87040; 87804; 87804-59; 93005; 94640; 96360; 97112-GO; 97112-GP; 97116-GP; 97161-GP; 97165-GO; 97530-GO; 97530-GP; 97535-GO; 99285; 99285-25; A9270-GY; J1650; J3490; J7030; J7042; J7620-GY

== ENCOUNTER 2021-02-23 21:06 | Emergency (ER) | payer MEDICARE ==
--- NOTE | 2021-02-23 21:12 | EDM.PDOC ---
ED HPI GENERAL MEDICAL PROBLEM - General Stated Complaint: FALL Time Seen by Provider: 02/23/21 21:10 Source of Information: Reports: Patient History Limitations: Reports: No Limitations - History of Present Illness INITIAL COMMENTS - FREE TEXT/NARRATIVE: Cris fell at her garden,when the left hip gave out.Complains of pain on the left him,and as well as the lower back area.No head or neck injury or pain.She has had both hips replaced. - Related Data Allergies Allergy/AdvReac Type Severity Reaction Status Date / Time Penicillins Allergy Hives Verified 11/20/19 00:35 aspirin AdvReac Mild GI SX Verified 11/20/19 00:35 ibuprofen [From Motrin IB] AdvReac Mild GI SX Verified 11/20/19 00:35 morphine AdvReac Mild Hallucinati Verified 11/20/19 00:35 ons naproxen [From Aleve] AdvReac Mild GI SX Verified 11/20/19 00:35 Home Meds: Home Meds Ascorbate Calcium [Vitamin C] 500 mg PO DAILY PRN 08/21/16 [History] Cholecalciferol (Vitamin D3) [Vitamin D3] 1,000 units PO DAILY 08/21/16 [History] Citalopram Hydrobromide [Celexa] 40 mg PO DAILY 08/21/16 [History] Multivitamin with Minerals [Multiple Vitamin] 1 tab PO BID 08/21/16 [History] Tiotropium [Spiriva HandiHaler] 1 puff PO DAILY 08/21/16 [History] Vitamin E 400 unit PO ASDIRECTED 08/21/16 [History] rOPINIRole HCl [Requip] 0.5 mg PO BEDTIME 08/21/16 [History] traZODone 50 - 100 mg PO BEDTIME PRN 08/21/16 [History] Pantoprazole Sodium [Protonix] 40 mg PO DAILY 11/25/16 [History] Acetaminophen [Tylenol Arthritis] 650 mg PO ASDIRECTED PRN 11/26/16 [History] atorvaSTATin [Lipitor] 10 mg PO BEDTIME 11/20/19 [History] polyethylene glycoL 3350 [MiraLAX] 17 gm PO DAILY PRN 11/20/19 [History] Melatonin 6 mg PO BEDTIME PRN tablet 11/25/19 [Rx] amLODIPine Besylate [Amlodipine Besylate] 10 mg PO DAILY 30 Days #30 tablet 11/25/19 [Rx] Calcium Carbonate/Vitamin D3 [Calcium 600 mg-Vit D3 10Mcg Tb] 1 tab PO ASDIRECTED 02/23/21 [History] Cholecalciferol (Vitamin D3) [Vitamin D3] 1 tab PO ASDIRECTED 02/23/21 [History] Docusate Sodium 100 mg PO ASDIRECTED 02/23/21 [History] Famotidine [Pepcid AC] 10 mg PO ASDIRECTED 02/23/21 [History] Glucosamine HCl [Glucosamine] 1,500 mg PO ASDIRECTED 02/23/21 [History] Metoprolol Tartrate [Lopressor] 75 mg PO BID 02/23/21 [History] Naproxen Sodium 220 mg PO ASDIRECTED 02/23/21 [History] Om-3/Epa/Dha/Fish Oil/Flax/E [Thera Tears Nutrition Capsule] 1 each PO ASDIRECTED 02/23/21 [History] [place]-3 Fatty Acids/Fish Oil [Fish Oil 1,000 mg Capsule] 1 each PO ASDIRECTED 02/23/21 [History] Tiotropium [Spiriva] 18 mcg INH ASDIRECTED 02/23/21 [History] Ubidecarenone [Co Q-10] 200 mg PO ASDIRECTED 02/23/21 [History] lisinopriL [Prinivil] 20 mg PO BID 02/23/21 [History] Past Medical History Cardiovascular History: Reports: High Cholesterol, Hypertension Other Cardiovascular History: RECENT EKG FOR PAIN INTO SHOULDERS, NECK, AND DOWN LT ARM Respiratory History: Reports: TB Gastrointestinal History: Reports: GERD Other Gastrointestinal History: pylorus ulcer ,diverticulosis of duodenum Genitourinary History: Reports: Acute Renal Failure, UTI, Recurrent Other Genitourinary History: acute cystitis SENIOR OPERATIONS ANALYST History: Reports: Other SENIOR OPERATIONS ANALYST History: Musculoskeletal History: Reports: RA, Other (See Below) Other Musculoskeletal History: HX POLIO Neurological History: Reports: Other (See Below) Other Neuro History: EXTRAPYRAMIDAL MOVEMENT DISORDER,insomnia Psychiatric History: Reports: Depression Endocrine/Metabolic History: Reports: Obesity/BMI 30+ Other Endocrine/Metabolic History: abnormal glucose,hyperlipidemia - Infectious Disease History Infectious Disease History: Reports: Chicken Pox, Measles - Past Surgical History Female Surgical History: Reports: Breast Biopsy, Hysterectomy Musculoskeletal Surgical History: Reports: Hip Replacement, Knee Replacement, Shoulder Replacement Social & Family History - Family History Family Medical History: No Pertinent Family History - Caffeine Use Caffeine Use: Reports: Soda, Tea Review of Systems - Review of Systems Review Of Systems: Comprehensive ROS is negative, except as noted in HPI. ED EXAM, GENERAL - Physical Exam Exam: See Below Exam Limited By: No Limitations General Appearance: Alert, WD/WN, No Apparent Distress Throat/Mouth: Normal Inspection Head: Atraumatic Respiratory/Chest: No Respiratory Distress Back Exam: Normal Inspection, Paraspinal Tenderness, Vertebral Tenderness Extremities: Leg Pain, Limited Range of Motion, Other (Left hip tender and the trochanteric bursa). No: Normal Inspection, Normal Range of Motion Psychiatric: Normal Affect Skin Exam: Warm Course - Orders/Labs/Meds Orders: Active Orders 24 hr Category Date Time Status Hip Min 2V or 3V Lt [CR] Stat Exams 02/23/21 21:08 Ordered Lumbar Spine 2 or 3V [CR] Stat Exams 02/23/21 21:08 Taken Departure - Departure Time of Disposition: 21:56 Disposition: DC/Tfer to [facility] 02 Clinical Impression: S/P bilateral hip replacements - Discharge Information Instructions: Hip Pain - Problem List & Annotations (1) Hip dislocation, left SNOMED Code(s): 582155249 Code(s): S73.005A - UNSPECIFIED DISLOCATION OF LEFT HIP, INITIAL ENCOUNTER Status: Acute Qualifiers: Encounter type: initial encounter Qualified Code(s): S73.005A - Unspecified dislocation of left hip, initial encounter - Problem List Review Problem List Initiated/Reviewed/Updated: Yes - My Orders Last 24 Hours: My Active Orders 02/23/21 21:08 Hip Min 2V or 3V Lt [CR] Stat Lumbar Spine 2 or 3V [CR] Stat - Assessment/Plan Last 24 Hours: My Active Orders 02/23/21 21:08 Hip Min 2V or 3V Lt [CR] Stat Lumbar Spine 2 or 3V [CR] Stat Plan: Transfer to [facility].
[2021-02-23 22:38] VITALS: BP 157/80; PULSE 75
== END 2021-02-23 22:20 ==
LOC: FB.ED 21:06
DX: S70.02XA Contusion of left hip, initial encounter (principal); K21.9 Gastro-esophageal reflux disease without esophagitis; E66.9 Obesity, unspecified; Z68.30 Body mass index [BMI] 30.0-30.9, adult; E78.5 Hyperlipidemia, unspecified; Z88.0 Allergy status to penicillin; Z88.8 Allergy status to other drugs, medicaments and biological substances; Z88.5 Allergy status to narcotic agent; Z88.6 Allergy status to analgesic agent; Z96.652 Presence of left artificial knee joint; W18.39XA Other fall on same level, initial encounter
CPT/HCPCS: 72100; 73502-LT; 99284; 99284-25